=== PATIENT | female | born 1960 | race Caucasian/White ===

== ENCOUNTER 2019-05-28 22:57 | Emergency (ER) | payer BC ==
--- NOTE | 2019-05-28 23:04 | ERPHSYRPT ---
- History of Present Illness Time Seen by Provider: 05/28/19 23:04 Source: patient, EMS Exam Limitations: no limitations Physician History: 58 y/o obese white female presents to ED via ems. pt complains of skin rash. pt under went an open ventral hernia repair with mesh approx 6 days ago. pt has been using utram for pain. pt has been wearing a post op abd binder. there is an itchy rash present on her abd wall. Timing/Duration: today Quality: itchy Severity: mild Location: torso (abd wall) Possible Causes: other (dry skin and abd binder) Associated Symptoms: No change in skin texture, No difficulty breathing, No hives Allergies/Adverse Reactions: codeine Allergy (Verified 03/03/16 22:56) Home Medications: Gabapentin [Neurontin] 300 mg PO TID 10/23/15 [History] Insulin Aspart [NovoLOG Insulin] 0 units SQ ACHS PRN 10/23/15 [History] Hx Tetanus, Diphtheria Vaccination/Date Given: No Hx Influenza Vaccination/Date Given: No Hx Pneumococcal Vaccination/Date Given: No - Review of Systems Constitutional: No Symptoms Eyes: No Symptoms Ears, Nose, & Throat: No Symptoms Respiratory: No Symptoms Cardiac: No Symptoms Abdominal/Gastrointestinal: Abdominal Pain (mild post op) Genitourinary Symptoms: No Symptoms Musculoskeletal: No Symptoms Skin: Rash Neurological: No Symptoms Psychological: No Symptoms Endocrine: No Symptoms Hematologic/Lymphatic: No Symptoms - Past Medical History Pertinent Past Medical History: Yes Neurological History: Stroke Cardiac History: No Pertinent History Respiratory History: No Pertinent History Endocrine Medical History: Diabetes Type II Musculoskeletal History: No Pertinent History GI Medical History: No Pertinent History History: No Pertinent History Psycho-Social History: No Pertinent History Female Reproductive Disorders: No Pertinent History Other Medical History: neruopathy - Past Surgical History Past Surgical History: Yes Neuro Surgical History: No Pertinent History Cardiac: No Pertinent History Respiratory: No Pertinent History Gastrointestinal: Cholecystectomy Genitourinary: No Pertinent History Musculoskeletal: Orthopedic Surgery Female Surgical History: No Pertinent History Other Surgical History: GALLBLADDER REMOVAL,BILATERAL SHOULDER - Social History Smoking Status: Never smoker Exposure to second hand smoke: No Drug Use: none Patient Lives Alone: No Significant Family History: diabetes, DVT/PE - Nursing Vital Signs Nursing Vital Signs: Initial Vital Signs Temperature 98.0 F 05/28/19 22:58 Pulse Rate 66 05/28/19 22:58 Respiratory Rate 20 05/28/19 22:58 Blood Pressure 139/75 05/28/19 22:58 O2 Sat by Pulse Oximetry 95 05/28/19 22:58 Pain Scale Pain Intensity 6 - Physical Exam General Appearance: no apparent distress, alert, anxiety Eye Exam: PERRL/EOMI, eyes nml inspection Ears, Nose, Throat Exam: normal ENT inspection, moist mucous membranes Neck Exam: normal inspection, non-tender, supple, full range of motion Respiratory Exam: normal breath sounds, lungs clear, airway intact, No chest tenderness, No respiratory distress Cardiovascular Exam: regular rate/rhythm, normal heart sounds, normal peripheral pulses Gastrointestinal/Abdomen Exam: soft, normal bowel sounds, tenderness (in distribution of incision site. no evidence of infection. no recurrent hernia. skin dry with rash distribution of abd binder) Pelvic Exam: not done Rectal Exam: not done Back Exam: normal inspection, normal range of motion, No CVA tenderness, No vertebral tenderness Extremity Exam: normal inspection, normal range of motion, pelvis stable Neurologic Exam: alert, oriented x 3, cooperative, last model maker II-XII nml as tested, normal mood/affect, nml cerebellar function, nml station & gait Skin Exam: dry, rash Lymphatic Exam: No adenopathy SpO2 Interpretation: normal O2 Delivery: Room Air - Course Nursing assessment & vital signs reviewed: Yes Ordered Tests: Medication Summary Discontinued Medications Generic Name Dose Route Start Last Admin Trade Name Freq PRN Reason Stop Dose Admin Methylprednisolone Sodium Succinate 125 mg 05/28/19 23:04 Solu-Medrol 125 Mg IV 05/28/19 23:05 STAT ONE - Progress Progress: improved Counseled pt/family regarding: diagnosis, need for follow-up - Departure Departure Disposition: Home Clinical Impression: Post-operative pain, Dermatitis Condition: Stable Critical Care Time: No Referrals: FATUMA GOMES [Primary Care Provider] - Additional Instructions: continue benadryl 25mg orally 3 times daily for 4 days. apply skin moisturizing lotion 2 times daily to abdominal wall rash. discontinue abdominal binder. do not scratch. follow up with your surgeon tomorrow for further management. stop tramadol. use tylenol for pain. Prescriptions: Prednisone 10 mg [Deltasone 10 mg] 10 mg PO BID #6 tablet
[2019-05-28] MEDS ORDERED: solu-MEDROL 125 MG ONE (23:52)
[2019-05-28] MEDS: solu-MEDROL 125 MG IV ONE (23:55)
[2019-05-29 00:37] VITALS: BP 135/60; PULSE 64; O2SAT 94
== END 2019-05-29 00:38 | disposition home or self-care (01) ==
LOC: ED 22:57
DX: G89.18 Other acute postprocedural pain (principal); L30.9 Dermatitis, unspecified
CPT/HCPCS: 96374; 99284; J2930

== ENCOUNTER 2019-07-16 11:07 | Emergency (ER) | payer BC, MEDICARE ==
[2019-07-16] MEDS ORDERED: Sodium Chloride 0.9% 1000 ML 1,000 ML IV SCH (11:45)
[2019-07-16] MEDS ORDERED: Zofran 4 MG/2 ML VIAL IV ONE (11:45)
--- NOTE | 2019-07-16 11:45 | ERPHSYRPT ---
- History of Present Illness Time Seen by Provider: 07/16/19 11:10 Historian: patient, EMS Exam Limitations: clinical condition Patient Subjective Stated Complaint: STATES HAS HAD NAUSEA AND VOMITING SINCE LAST MONDAY. ALSO HAVING EPIGASTRIC PAIN AND NO APPETITE. DENIES DIARRHEA. Triage Nursing Assessment: TO ROOM PER EMS COT. SKIN PALE, W/D. PATIENT HOLDING LEFT UPPER ABD. TENDER TO TOUCH. VOMITING SMALL AMTS GREEN LIQUID. NORMAL BOWEL SOUNDS Physician History: 58 y/o obese white female with renal failure who has not been dialyzed for a week seconary to her attendance at 3 funerals. she presents via ems for 3 day ho n/v and left lower quad abd pain. pt has been taken off all her meds except metoprolol 25mg BID. she did not complain of cp to ems. however, she states she is having localized nonradiating central substernal cp on arrival. Timing/Duration: day(s) (3) Activities at Onset: none Quality: sharpness, stabbing Abdominal Pain Onset Location: LLQ Pain Radiation: no radiation Severity of Pain-Max: moderate Severity of Pain-Current: moderate Modifying Factors: Improves With: vomiting Associated Symptoms: chest pain, nausea, vomiting Allergies/Adverse Reactions: codeine Allergy (Verified 03/03/16 22:56) Home Medications: Metoprolol Tartrate 25 mg PO BID 07/16/19 [History] Hx Tetanus, Diphtheria Vaccination/Date Given: No Hx Influenza Vaccination/Date Given: No Hx Pneumococcal Vaccination/Date Given: No - Review of Systems Constitutional: No Symptoms Eyes: No Symptoms Ears, Nose, & Throat: No Symptoms Respiratory: No Symptoms Cardiac: No Symptoms Abdominal/Gastrointestinal: Abdominal Pain (llq), Nausea, Vomiting Genitourinary Symptoms: No Symptoms Musculoskeletal: No Symptoms Skin: No Symptoms Neurological: No Symptoms Psychological: No Symptoms Endocrine: No Symptoms Hematologic/Lymphatic: No Symptoms Immunological/Allergic: No Symptoms All Other Systems: Reviewed and Negative - Past Medical History Pertinent Past Medical History: Yes Neurological History: Stroke ENT History: No Pertinent History Cardiac History: No Pertinent History Respiratory History: No Pertinent History Endocrine Medical History: Diabetes Type II Musculoskeletal History: No Pertinent History GI Medical History: No Pertinent History History: Renal Disease Psycho-Social History: No Pertinent History Female Reproductive Disorders: No Pertinent History Other Medical History: neruopathy - Past Surgical History Past Surgical History: Yes Neuro Surgical History: No Pertinent History Cardiac: No Pertinent History Respiratory: No Pertinent History Gastrointestinal: Cholecystectomy Genitourinary: No Pertinent History Musculoskeletal: Orthopedic Surgery Female Surgical History: No Pertinent History Other Surgical History: GALLBLADDER REMOVAL,BILATERAL SHOULDER - Social History Smoking Status: Never smoker Exposure to second hand smoke: No Drug Use: none Patient Lives Alone: No Significant Family History: diabetes, DVT/PE - Female History Hx Now: No - Nursing Vital Signs Nursing Vital Signs: Initial Vital Signs Temperature 98 F 07/16/19 11:08 Pulse Rate 79 07/16/19 11:08 Respiratory Rate 16 07/16/19 11:08 Blood Pressure 230/96 07/16/19 11:08 O2 Sat by Pulse Oximetry 95 07/16/19 11:08 Pain Scale Pain Intensity 0 - Physical Exam General Appearance: mild distress, alert, anxiety, obese Eye Exam: PERRL/EOMI, eyes nml inspection Ears, Nose, Throat Exam: normal ENT inspection, moist mucous membranes Neck Exam: normal inspection, non-tender, supple, full range of motion Respiratory Exam: normal breath sounds, lungs clear, airway intact, No chest tenderness, No respiratory distress Cardiovascular Exam: regular rate/rhythm, normal heart sounds, normal peripheral pulses Gastrointestinal/Abdomen Exam: soft, normal bowel sounds, tenderness, guarding, rebound Pelvic Exam: not done Rectal Exam: not done Back Exam: normal inspection, normal range of motion, No CVA tenderness, No vertebral tenderness Extremity Exam: normal inspection, normal range of motion, pelvis stable Neurologic Exam: alert, oriented x 3, cooperative, facilities project manager II-XII nml as tested Skin Exam: normal color, warm, dry Lymphatic Exam: adenopathy SpO2 Interpretation: normal SpO2: 95 O2 Delivery: Room Air - Course Nursing assessment & vital signs reviewed: Yes EKG Interpreted by Me: RATE (80), Sinus Rhythm, NORMAL AXIS, NORMAL INTERVALS, NORMAL QRS, Other (no acute findings. no change from comparison ekg dated ) Ordered Tests: Active Orders 24 hr Category Date Time Status EKG-ER Only STAT Care 07/16/19 11:45 Active IV Insertion STAT Care 07/16/19 11:45 Active ABDOMEN AND PELVIS W/0 CONTRAS [CT] Stat Exams 07/16/19 12:28 Completed CHEST 1 VIEW (PORTABLE) Stat Exams 07/16/19 11:48 Completed AMYLASE Stat Lab 07/16/19 11:40 Completed BLOOD CULTURE Stat Lab 07/16/19 12:21 Received CBC W DIFF Stat Lab 07/16/19 11:40 Completed CMP Stat Lab 07/16/19 11:40 Completed CULTURE,URINE Stat Lab 07/16/19 12:34 Received LIPASE Stat Lab 07/16/19 11:40 Completed Lactic Acid Stat Lab 07/16/19 11:45 Completed TROPONIN Q3H Lab 07/16/19 11:40 Completed TROPONIN Q3H Lab 07/16/19 15:00 Ordered TROPONIN Q3H Lab 07/16/19 18:00 Ordered TROPONIN Q3H Lab 07/16/19 21:00 Ordered TROPONIN Q3H Lab 07/17/19 00:00 Ordered UA W/RFX UR CULTURE Stat Lab 07/16/19 12:34 Completed Medication Summary Generic Name Dose Route Start Last Admin Trade Name Freq PRN Reason Stop Dose Admin Sodium Chloride 1,000 mls @ 100 mls/hr 07/16/19 11:45 07/16/19 12:02 Sodium Chloride 0.9% 1000 Ml IV 08/15/19 11:44 100 mls/hr .Q10H ZHEN Administration Labetalol HCl 40 mg 07/16/19 14:38 Trandate 100mg/20 Ml Mdv IV 07/16/19 14:39 STAT ONE Discontinued Medications Generic Name Dose Route Start Last Admin Trade Name Freq PRN Reason Stop Dose Admin Hydromorphone HCl 0.5 mg 07/16/19 12:18 07/16/19 13:05 Hydromorphone 1 Mg/Ml Ampule IV 07/16/19 12:19 0.5 mg STAT ONE Administration Hydromorphone HCl Confirm 07/16/19 12:48 Hydromorphone 1 Mg/Ml Ampule Administered 07/16/19 12:49 Dose 1 mg .ROUTE .STK-MED ONE Piperacillin Sod/Tazobactam Sod 3.375 gm in 100 mls @ 200 mls/hr 07/16/19 14: 01 Zosyn 3.375gm/100 Ml D5w IV 07/16/19 14:30 STAT STA Piperacillin Sod/Tazobactam Sod Confirm 07/16/19 14:34 Zosyn 3.375gm/100 Ml D5w Administered 07/16/19 14:35 Dose 3.375 gm in 100 mls @ ud IV .STK-MED ONE Labetalol HCl 20 mg 07/16/19 14:07 Trandate 20 Mg/5 Ml Syringe IV 07/16/19 14:08 STAT ONE Metoprolol Tartrate 5 mg 07/16/19 12:16 07/16/19 12:20 Lopressor 5 Mg/5 Ml Injection IV 07/16/19 12:17 5 mg STAT ONE Administration Metoprolol Tartrate Confirm 07/16/19 12:18 Lopressor 5 Mg/5 Ml Injection Administered 07/16/19 12:19 Dose 5 mg IV .STK-MED ONE Ondansetron HCl 4 mg 07/16/19 11:45 07/16/19 12:03 Zofran 4 Mg/2 Ml Vial IV 07/16/19 11:46 4 mg STAT ONE Administration Ondansetron HCl Confirm 07/16/19 11:57 Zofran 4 Mg/2 Ml Vial Administered 07/16/19 11:58 Dose 4 mg .ROUTE .STK-MED ONE Lab/Rad Data: Laboratory Result Diagrams 07/16/19 11:40 07/16/19 11:40 Laboratory Results 07/16/19 07/16/19 07/16/19 Range/Units 12:34 11:45 11:40 WBC (4.0-10.5) K/mm3 RBC (4.1-5.4) M/mm3 Hgb (12.0-16.0) gm/dl Hct (35-47) % MCV (78-100) fl MCH (26-32) pg MCHC (32-36) g/dl RDW (11.5-14.0) % Plt Count (150-450) K/mm3 MPV (6-9.5) fl Gran % (36.0-66.0) % Eos # (Auto) (0-0.5) Absolute Lymphs (auto) (1.0-4.6) Absolute Monos (auto) (0.0-1.3) Lymphocytes % (24.0-44.0) % Monocytes % (0.0-12.0) % Eosinophils % (0.00-5.0) % Basophils % (0.0-0.4) % Absolute Granulocytes (1.4-6.9) Basophils # (0-0.4) Sodium (137-145) mmol/L Potassium (3.5-5.1) mmol/L Chloride (98-107) mmol/L Carbon Dioxide (22-30) mmol/L Anion Gap (5-15) MEQ/L BUN (7-17) mg/dL Creatinine (0.52-1.04) mg/dL Estimated GFR ML/MIN Glucose (74-106) mg/dL Lactic Acid 1.1 (0.4-2.0) Calcium (8.4-10.2) mg/dL Total Bilirubin (0.2-1.3) mg/dL AST (14-36) U/L ALT (0-35) U/L Alkaline Phosphatase (38-126) U/L Troponin I 0.035 H (0.000-0.034) ng/mL Serum Total Protein (6.3-8.2) g/dL Albumin (3.5-5.0) g/dL Amylase (30-110) U/L Lipase (23-300) U/L Urine Color YELLOW (YELLOW) Urine Appearance SLIGHTLY CLOUDY (CLEAR) Urine pH 5.0 (5-6) Ur Specific [place] 1.017 (1.005-1.025) Urine Protein >=500 (Negative) Urine Ketones TRACE (NEGATIVE) Urine Blood SMALL (0-5) Joe/ul Urine Nitrite NEGATIVE (NEGATIVE) Urine Bilirubin NEGATIVE (NEGATIVE) Urine Urobilinogen NEGATIVE (0-1) mg/dL Ur Leukocyte Esterase NEGATIVE (NEGATIVE) Urine WBC (Auto) 51-100 (0-5) /HPF Urine RBC (Auto) 6-10 (0-2) /HPF U Hyaline Cast (Auto) 0-2 (0-2) /LPF U Epithel Cells (Auto) NONE (FEW) /HPF Urine Bacteria (Auto) MODERATE (NEGATIVE) /HPF Urine Mucus (Auto) SLIGHT (NEGATIVE) /HPF Urine Culture Reflexed YES (NO) Urine Glucose 150 (NEGATIVE) mg/dL 07/16/19 07/16/19 Range/Units 11:40 11:40 WBC 8.9 (4.0-10.5) K/mm3 RBC 3.13 L (4.1-5.4) M/mm3 Hgb 9.0 L (12.0-16.0) gm/dl Hct 27.7 L (35-47) % MCV 88.5 (78-100) fl MCH 28.7 (26-32) pg MCHC 32.5 (32-36) g/dl RDW 15.2 H (11.5-14.0) % Plt Count 129 L (150-450) K/mm3 MPV 11.7 H (6-9.5) fl Gran % 78.2 H (36.0-66.0) % Eos # (Auto) 0.24 (0-0.5) Absolute Lymphs (auto) 1.13 (1.0-4.6) Absolute Monos (auto) 0.50 (0.0-1.3) Lymphocytes % 12.7 L (24.0-44.0) % Monocytes % 5.6 (0.0-12.0) % Eosinophils % 2.7 (0.00-5.0) % Basophils % 0.8 (0.0-0.4) % Absolute Granulocytes 6.98 H (1.4-6.9) Basophils # 0.07 (0-0.4) Sodium 143 (137-145) mmol/L Potassium 4.5 (3.5-5.1) mmol/L Chloride 104 (98-107) mmol/L Carbon Dioxide 19 L (22-30) mmol/L Anion Gap 24.3 H (5-15) MEQ/L BUN 98 H (7-17) mg/dL Creatinine 12.48 H (0.52-1.04) mg/dL Estimated GFR 3.3 ML/MIN Glucose 107 H (74-106) mg/dL Lactic Acid (0.4-2.0) Calcium 9.4 (8.4-10.2) mg/dL Total Bilirubin 0.70 (0.2-1.3) mg/dL AST 17 (14-36) U/L ALT 12 (0-35) U/L Alkaline Phosphatase 70 (38-126) U/L Troponin I (0.000-0.034) ng/mL Serum Total Protein 6.8 (6.3-8.2) g/dL Albumin 3.9 (3.5-5.0) g/dL Amylase 76 (30-110) U/L Lipase 173 (23-300) U/L Urine Color (YELLOW) Urine Appearance (CLEAR) Urine pH (5-6) Ur Specific [place] (1.005-1.025) Urine Protein (Negative) Urine Ketones (NEGATIVE) Urine Blood (0-5) Joe/ul Urine Nitrite (NEGATIVE) Urine Bilirubin (NEGATIVE) Urine Urobilinogen (0-1) mg/dL Ur Leukocyte Esterase (NEGATIVE) Urine WBC (Auto) (0-5) /HPF Urine RBC (Auto) (0-2) /HPF U Hyaline Cast (Auto) (0-2) /LPF U Epithel Cells (Auto) (FEW) /HPF Urine Bacteria (Auto) (NEGATIVE) /HPF Urine Mucus (Auto) (NEGATIVE) /HPF Urine Culture Reflexed (NO) Urine Glucose (NEGATIVE) mg/dL - Progress Progress: improved, pain not gone completely, re-examined Progress Note: 07/16/19 14:42 cxr-right basilar opacity ct abd/pelvis-transverse and desc colitis with possible appendicitis 07/16/19 14:[address] [facility]. i reviewed pt hx, condition, ekg and xray results. he accepts pt in transfer. Counseled pt/family regarding: lab results, diagnosis, rad results - Departure Departure Disposition: Transfer Clinical Impression: Renal failure (ARF), acute on chronic, Colitis, Appendicitis, Hypertensive urgency Condition: Fair Critical Care Time: Yes Critical Care Time(excluding separately billable procedures): Critical 30-74 mins Referrals: DOCTOR,NO FAMILY [Primary Care Provider] -
[2019-07-16] MEDS ORDERED: Sodium Chloride 0.9% 1000 ML 1,000 ML ONE (11:57)
[2019-07-16] MEDS ORDERED: Zofran 4 MG/2 ML VIAL ONE (11:57)
[2019-07-16 11:58] LABS: Absolute Neutrophil Ct (ANC) 6.98 (1.4-6.9); BASOPHIL % 0.8 % (0.0-0.4); Basophil (Absolute #) 0.07 (0-0.4); Eosinophil % 2.7 % (0.00-5.0); Eosinophil (Absolute #) 0.24 (0-0.5); Hematocrit 27.7 % (35-47); Lymphocyte (Absolute #) 1.13 (1.0-4.6); Lymphocytes % 12.7 % (24.0-44.0); Mean Cell Volume 88.5 fl (78-100); Mean Corpuscular Hgb Concent. 32.5 g/dl (32-36); Mean Platelet Volume 11.7 fl (6-9.5); Monocytes % 5.6 % (0.0-12.0); Neutrophil % 78.2 % (36.0-66.0); Platelet Count 129 K/mm3 (150-450); Red Blood Count 3.13 M/mm3 (4.1-5.4); Red Cell Distribution Width 15.2 % (11.5-14.0); White Blood Count 8.9 K/mm3 (4.0-10.5)
[2019-07-16 12:00] LABS: Mean Corpuscular Hemoglobin 28.7 pg (26-32)
[2019-07-16] MEDS ORDERED: LOPRESSOR 5 MG/5 ML INJECTION IV ONE ×2 (12:16→12:18)
[2019-07-16] MEDS ORDERED: Hydromorphone 1 mg/ml Ampule IV ONE (12:18)
--- NOTE | 2019-07-16 12:19 | XRAY ---
Indication: Pain 3 days. Vomiting. Comparison: April 07, 2016. Portable chest now demonstrates subtle right base interstitial alveolar opacity. Remaining heart and lungs unremarkable. New partially visualized left arm vascular stent graft. Bony thorax intact again with osteopenia, degenerative changes, and all bilateral humeral fractures. Impression: New right base interstitial lobular opacity and new left arm vascular stent graft.
[2019-07-16] MEDS ORDERED: Hydromorphone 1 mg/ml Ampule ONE (12:48)
[2019-07-16 13:09] LABS: ALBUMIN 3.9 g/dL (3.5-5.0); ANION GAP 24.3 MEQ/L (5-15); BILIRUBIN,TOTAL 0.7 mg/dL (0.2-1.3); Calcium 9.4 mg/dL (8.4-10.2); Creatinine 1 12.48 mg/dL (0.52-1.04); Potassium 4.5 mmol/L (3.5-5.1); Total Protein 6.8 g/dL (6.3-8.2)
[2019-07-16 13:13] LABS: Appearance SLIGHTLY CLOUDY (CLEAR); Bacteria MODERATE /HPF (NEGATIVE); Bilirubin NEGATIVE (NEGATIVE); Blood SMALL Ery/ul (0-5); Glucose 150 mg/dL (NEGATIVE); Hyaline Casts 0-2 /LPF (0-2); Ketones TRACE (NEGATIVE); Leukocyte Esterase NEGATIVE (NEGATIVE); Mucus SLIGHT /HPF (NEGATIVE); Nitrite NEGATIVE (NEGATIVE); Protein,Urine Dip >=500 (Negative); Specific Gravity 1.017 (1.005-1.025); Urobilinogen NEGATIVE mg/dL (0-1); WBC 51-100 /HPF (0-5)
--- NOTE | 2019-07-16 13:41 | XRAY ---
Indication: Left lower quadrant pain and vomiting. Multiple contiguous axial images obtained through the abdomen and pelvis without contrast as ordered. Comparison: April 28, 2016. Lung bases demonstrates new small effusions, right greater than left presumed obscuring previous right posterior gutter nodule. New 1 cm right posterior lateral gutter nodule. Heart is not enlarged. Noncontrasted stomach and small bowel loops appear nonobstructed. Appendix measures 7 mm in diameter with new periappendiceal stranding favoring appendicitis. Colon demonstrates intraluminal radiopacities throughout presumed ingested medication/bismuth. New mild transverse colon and lesser degree descending colon circumferential wall thickening with minimal stranding favoring colitis. No free fluid/air. Previous left adnexal mass has been surgically excised. Uterus demonstrates diffuse serpiginous calcifications. Kidneys demonstrates new nonobstructing bilateral micro-calculi, largest on the left measuring 2 mm. New slightly dense 8 mm round right mid renal cortical lesion, possible viscous/complex cyst. Again previous cholecystectomy. Remaining liver, pancreas, spleen, adrenal glands, kidneys, ureters, and bladder appear unremarkable for noncontrast exam. Stable diffuse scattered vascular calcifications without AAA. Osseous structures intact again with mild degenerative changes throughout the thoracolumbar spine. Midline ventral soft tissue changes presumed postsurgical with small supraumbilical incisional fluid collection measuring 3.3 x 2.5 x 4.5 cm. Impression: 1. New prominent appendix with periappendiceal stranding favoring appendicitis. No complications. 2. New transverse and lesser degree descending colon bowel wall thickening with minimal stranding favoring colitis. 3. New nonobstructing bilateral renal micro-calculi. Also new subcentimeter round right renal cortical lesion, possible viscous/complex cyst. 4. New midline abdominal wall postsurgical changes with supraumbilical incisional fluid collection. Rule out seroma versus hematoma versus abscess. 5. New small bibasilar effusions obscuring previous right posterior lung nodule. Also new 1 cm indeterminate right posterior gutter noncalcified nodule. CT DI 23.47
[2019-07-16] MEDS ORDERED: Zosyn 3.375GM/100 Ml D5W 3.375 GM/100 ML IVPB IV STA (14:01)
[2019-07-16] MEDS ORDERED: TRANDATE 20 MG/5 ML SYRINGE IV ONE (14:07)
[2019-07-16] MEDS ORDERED: Zosyn 3.375GM/100 Ml D5W 3.375 GM/100 ML IVPB IV ONE (14:34)
[2019-07-16] MEDS ORDERED: TRANDATE 100MG/20 ML MDV IV ONE ×2 (14:38→14:39)
[2019-07-16] MEDS ORDERED: TRANDATE 100 MG/20 ML MDV FOR DRIP IV ONE (14:42)
[2019-07-16 15:32] VITALS: BP 219/90; PULSE 82; O2SAT 94
== END 2019-07-16 15:45 | disposition short-term general hospital (02) ==
LOC: ED 11:07
DX: N17.9 Acute kidney failure, unspecified (principal); N18.9 Chronic kidney disease, unspecified; K52.9 Noninfective gastroenteritis and colitis, unspecified; K37 Unspecified appendicitis; I16.0 Hypertensive urgency; R11.2 Nausea with vomiting, unspecified; E11.9 Type 2 diabetes mellitus without complications; Z99.2 Dependence on renal dialysis
CPT/HCPCS: 36000; 36415; 71045; 74176; 80053; 81001; 82150; 83605; 83690; 84484; 85025; 87040; 87077; 87086; 87186; 93005; 93041; 96360; 96361; 96365; 96374; 96375; 99285; 99291; P9612; J1170; J2405; J2543

== ENCOUNTER 2019-08-23 02:26 | Emergency (ER) | payer BC, MEDICARE ==
--- NOTE | 2019-08-23 02:48 | ERPHSYRPT ---
- History of Present Illness Time Seen by Provider: 08/23/19 02:47 Source: patient, EMS Exam Limitations: no limitations Patient Subjective Stated Complaint: PT STATES SHE HAS BEEN SICK SINCE MONDAY AFTER DIALYSIS. BLOOD SUGAR WAS [address] EN [address]TE ER Triage Nursing Assessment: PT ALERT AND ORIENTED, PT KEEPS VERBALIZING THAT SHE FEELS SICK. RATES A CHRONIC PAIN IN BACK 3/10. Physician History: Sick for 2 days with N/V and chronic LBP Timing/Duration: day(s) (2) Severity: moderate Associated Symptoms: nausea, vomiting, abdominal pain, loss of appetite, malaise , No shortness of breath, No heartburn, No diaphoresis, No cough, No chills, No chest pain, No fever, No headaches, No syncope, No seizure Allergies/Adverse Reactions: codeine Allergy (Verified 03/03/16 22:56) pineapple Adverse Reaction (Verified 08/23/19 02:41) Home Medications: Amlodipine Besylate 5 mg [Norvasc 5 mg] 2.5 mg PO BID 08/23/19 [History] Aspirin [Aspirin EC] 81 mg PO DAILY 08/23/19 [History] Clonidine HCl 0.2 mg PO TID 08/23/19 [History] Fluoxetine HCl 20 mg [Prozac 20 MG] 20 mg PO DAILY 08/23/19 [History] Hydralazine HCl 100 mg PO TID 08/23/19 [History] Metoclopramide HCl 5 mg PO BID PRN 08/23/19 [History] PANTOPRAZOLE 40 mg Tablet [Protonix 40MG Tablet] 40 mg PO DAILY 08/23/19 [ History] Sucralfate 1 gm PO DAILY 08/23/19 [History] Hx Tetanus, Diphtheria Vaccination/Date Given: No Hx Influenza Vaccination/Date Given: No Hx Pneumococcal Vaccination/Date Given: No - Review of Systems Constitutional: No Fever, No Chills Eyes: No Symptoms Ears, Nose, & Throat: No Symptoms Respiratory: No Cough, No Dyspnea Cardiac: No Chest Pain, No Edema, No Syncope Abdominal/Gastrointestinal: Abdominal Pain, Nausea, Vomiting, No Diarrhea Genitourinary Symptoms: No Dysuria Musculoskeletal: No Back Pain, No Neck Pain Skin: No Rash Neurological: No Dizziness, No Focal Weakness, No Sensory Changes Psychological: No Symptoms Endocrine: No Symptoms All Other Systems: Reviewed and Negative - Past Medical History Pertinent Past Medical History: Yes Neurological History: Stroke ENT History: No Pertinent History Cardiac History: No Pertinent History Respiratory History: No Pertinent History Endocrine Medical History: Diabetes Type II Musculoskeletal History: No Pertinent History GI Medical History: No Pertinent History History: Renal Disease Psycho-Social History: No Pertinent History Female Reproductive Disorders: No Pertinent History Other Medical History: neruopathy - Past Surgical History Past Surgical History: Yes Neuro Surgical History: No Pertinent History Cardiac: No Pertinent History Respiratory: No Pertinent History Gastrointestinal: Cholecystectomy Genitourinary: No Pertinent History Musculoskeletal: Orthopedic Surgery Female Surgical History: No Pertinent History Other Surgical History: GALLBLADDER REMOVAL,BILATERAL SHOULDER - Social History Smoking Status: Never smoker Exposure to second hand smoke: No Drug Use: none Patient Lives Alone: No Significant Family History: diabetes, DVT/PE - Nursing Vital Signs Nursing Vital Signs: Initial Vital Signs Temperature 98.5 F 08/23/19 02:28 Pulse Rate 93 H 08/23/19 02:28 Blood Pressure 190/98 08/23/19 02:28 O2 Sat by Pulse Oximetry 93 L 08/23/19 02:28 Pain Scale Pain Intensity 0 - Physical Exam General Appearance: no apparent distress, alert Eye Exam: PERRL/EOMI, eyes nml inspection Ears, Nose, Throat Exam: normal ENT inspection, TMs normal, pharynx normal, moist mucous membranes Neck Exam: normal inspection, non-tender, supple, full range of motion Respiratory Exam: normal breath sounds, lungs clear, No respiratory distress Cardiovascular Exam: regular rate/rhythm, normal heart sounds, normal peripheral pulses Gastrointestinal/Abdomen Exam: soft, normal bowel sounds, tenderness (mild, diffuse), No mass Back Exam: normal inspection, normal range of motion, No CVA tenderness, No vertebral tenderness Extremity Exam: normal inspection, normal range of motion, pelvis stable Neurologic Exam: alert, oriented x 3, cooperative, normal mood/affect, nml cerebellar function, nml station & gait, sensation nml, No motor deficits Skin Exam: normal color, warm, dry, No rash Lymphatic Exam: No adenopathy SpO2 Interpretation: normal SpO2: 93 O2 Delivery: Room Air - Course Nursing assessment & vital signs reviewed: Yes Ordered Tests: Active Orders 24 hr Category Date Time Status IV Insertion STAT Care 08/23/19 02:50 Active CBC W DIFF Stat Lab 08/23/19 03:30 Completed CMP Stat Lab 08/23/19 03:30 Completed LIPASE Stat Lab 08/23/19 03:30 Completed Medication Summary Generic Name Dose Route Start Last Admin Trade Name Janis PRN Reason Stop Dose Admin Sodium Chloride 1,000 mls @ 100 mls/hr 08/23/19 03:00 08/23/19 03:03 Sodium Chloride 0.9% 1000 Ml IV 09/22/19 02:59 100 mls/hr .Q10H ZHEN Administration Discontinued Medications Generic Name Dose Route Start Last Admin Trade Name Janis PRN Reason Stop Dose Admin Clonidine 0.2 mg 08/23/19 04:16 08/23/19 04:31 Catapres 0.1 Mg PO 08/23/19 04:17 0.2 mg STAT ONE Administration Clonidine Confirm 08/23/19 04:27 Catapres 0.1 Mg Administered 08/23/19 04:28 Dose 0.2 mg .ROUTE .STK-MED ONE Diphenhydramine HCl 12.5 mg 08/23/19 04:17 08/23/19 04:30 Benadryl 50 Mg/Ml IV 08/23/19 04:18 12.5 mg STAT ONE Administration Diphenhydramine HCl Confirm 08/23/19 04:27 Benadryl 50 Mg/Ml Administered 08/23/19 04:28 Dose 50 mg .ROUTE .STK-MED ONE Metoclopramide HCl 10 mg 08/23/19 02:51 08/23/19 03:03 Reglan 10 Mg/2 Ml IV 08/23/19 02:52 10 mg STAT ONE Administration Metoclopramide HCl Confirm 08/23/19 02:56 Reglan 10 Mg/2 Ml Administered 08/23/19 02:57 Dose 10 mg .ROUTE .STK-MED ONE Morphine Sulfate 2 mg 08/23/19 02:50 08/23/19 03:04 Morphine Sulfate 2 Mg Inj IV 08/23/19 02:51 2 mg STAT ONE Administration Morphine Sulfate Confirm 08/23/19 02:56 Morphine Sulfate 2 Mg Inj Administered 08/23/19 02:57 Dose 2 mg .ROUTE .STK-MED ONE Lab/Rad Data: Laboratory Result Diagrams 08/23/19 03:30 08/23/19 03:30 Laboratory Results 08/23/19 08/23/19 Range/Units 03:30 03:30 WBC 4.6 (4.0-10.5) K/mm3 RBC 4.08 L (4.1-5.4) M/mm3 Hgb 11.1 L (12.0-16.0) gm/dl Hct 36.2 (35-47) % MCV 88.7 (78-100) fl MCH 27.2 (26-32) pg MCHC 30.7 L (32-36) g/dl RDW 14.9 H (11.5-14.0) % Plt Count 145 L (150-450) K/mm3 MPV 10.2 H (6-9.5) fl Gran % 79.4 H (36.0-66.0) % Eos # (Auto) 0.01 (0-0.5) Absolute Lymphs (auto) 0.62 L (1.0-4.6) Absolute Monos (auto) 0.29 (0.0-1.3) Lymphocytes % 13.4 L (24.0-44.0) % Monocytes % 6.3 (0.0-12.0) % Eosinophils % 0.2 (0.00-5.0) % Basophils % 0.7 (0.0-0.4) % Absolute Granulocytes 3.66 (1.4-6.9) Basophils # 0.03 (0-0.4) Sodium 142 (137-145) mmol/L Potassium 4.3 (3.5-5.1) mmol/L Chloride 96 L (98-107) mmol/L Carbon Dioxide 34 H (22-30) mmol/L Anion Gap 16.5 H (5-15) MEQ/L BUN 20 H (7-17) mg/dL Creatinine 5.36 H (0.52-1.04) mg/dL Estimated GFR 8.7 ML/MIN Glucose 210 H (74-106) mg/dL Calcium 9.9 (8.4-10.2) mg/dL Total Bilirubin 0.70 (0.2-1.3) mg/dL AST 17 (14-36) U/L ALT 11 (0-35) U/L Alkaline Phosphatase 76 (38-126) U/L Serum Total Protein 6.9 (6.3-8.2) g/dL Albumin 4.2 (3.5-5.0) g/dL Lipase 29 (23-300) U/L - Progress Progress: improved Progress Note: 08/23/19 06:42Pt resting well. BP 155/84. No vomiting Counseled pt/family regarding: lab results, diagnosis, need for follow-up - Departure Departure Disposition: Home, Extended Care Facility Clinical Impression: Essential hypertension Vomiting Qualifiers: Vomiting type: unspecified Vomiting Intractability: non-intractable Nausea presence: with nausea Qualified Code(s): R11.2 - Nausea with vomiting, unspecified Condition: Stable Critical Care Time: No Referrals: DOCTOR,NO FAMILY [Primary Care Provider] - Prescriptions: Ondansetron ODT 4 MG [Zofran Odt 4 mg] 4 mg PO Q6H PRN PRN #10 tab.rapdis PRN Reason: Vomiting
[2019-08-23] MEDS ORDERED: MORPHINE SULFATE 2 MG INJ ONE (02:56)
[2019-08-23] MEDS ORDERED: Reglan 10 MG/2 ML ONE (02:56)
[2019-08-23] MEDS ORDERED: Sodium Chloride 0.9% 1000 ML 1,000 ML ONE (02:56)
[2019-08-23] MEDS: Reglan 10 MG/2 ML IV ONE (03:03)
[2019-08-23] MEDS: Sodium Chloride 0.9% 1000 ML 1,000 ML IV SCH (03:03)
[2019-08-23] MEDS: MORPHINE SULFATE 2 MG INJ IV ONE (03:04)
[2019-08-23 03:45] LABS: Absolute Neutrophil Ct (ANC) 3.66 (1.4-6.9); BASOPHIL % 0.7 % (0.0-0.4); Basophil (Absolute #) 0.03 (0-0.4); Eosinophil % 0.2 % (0.00-5.0); Eosinophil (Absolute #) 0.01 (0-0.5); Hematocrit 36.2 % (35-47); Hemoglobin 11.1 gm/dl (12.0-16.0); Lymphocyte (Absolute #) 0.62 (1.0-4.6); Lymphocytes % 13.4 % (24.0-44.0); Mean Cell Volume 88.7 fl (78-100); Mean Corpuscular Hemoglobin 27.2 pg (26-32); Mean Corpuscular Hgb Concent. 30.7 g/dl (32-36); Mean Platelet Volume 10.2 fl (6-9.5); Monocyte (Absolute #) 0.29 (0.0-1.3); Monocytes % 6.3 % (0.0-12.0); Neutrophil % 79.4 % (36.0-66.0); Platelet Count 145 K/mm3 (150-450); Red Blood Count 4.08 M/mm3 (4.1-5.4); Red Cell Distribution Width 14.9 % (11.5-14.0); White Blood Count 4.6 K/mm3 (4.0-10.5)
[2019-08-23 04:02] LABS: ALBUMIN 4.2 g/dL (3.5-5.0); ANION GAP 16.5 MEQ/L (5-15); BILIRUBIN,TOTAL 0.7 mg/dL (0.2-1.3); Calcium 9.9 mg/dL (8.4-10.2); Creatinine 1 5.36 mg/dL (0.52-1.04); Potassium 4.3 mmol/L (3.5-5.1); Total Protein 6.9 g/dL (6.3-8.2)
[2019-08-23] MEDS ORDERED: Catapres 0.1 MG ONE (04:27)
[2019-08-23] MEDS ORDERED: BENADRYL 50 MG/ML ONE (04:27)
[2019-08-23] MEDS: BENADRYL 50 MG/ML IV ONE (04:30)
[2019-08-23] MEDS: Catapres 0.1 MG PO ONE (04:31)
[2019-08-23 06:31] VITALS: BP 155/77; PULSE 91; O2SAT 93
== END 2019-08-23 06:58 | disposition home or self-care (01) ==
LOC: ED 02:26
DX: I12.0 Hypertensive chronic kidney disease with stage 5 chronic kidney disease or end stage renal disease (principal); I10 Essential (primary) hypertension
CPT/HCPCS: 36415; 80053; 83690; 85025; 96374; 96375; 99284; J1200; J2270; A9270-GY

== ENCOUNTER 2019-11-02 16:29 | Emergency (ER) | payer MEDICARE, BC ==
[2019-11-02] MEDS ORDERED: DUONEB 0.5-3 MG/3 ml Neb IH ONE ×2 (16:34→16:57)
[2019-11-02] MEDS ORDERED: Sodium Chloride 0.9% 1000 ML 1,000 ML IV SCH (16:45)
[2019-11-02] MEDS ORDERED: BENADRYL 50 MG/ML IV ONE (17:00)
--- NOTE | 2019-11-02 17:00 | ERPHSYRPT ---
- History of Present Illness Time Seen by Provider: 11/02/19 16:57 Source: patient Exam Limitations: no limitations Patient Subjective Stated Complaint: Pt states "I was at a basketball game and I started to have chest pain and shortness of breath. I am on dialysis and I have missed 6 sessions, I also have these spots on my back that really really hurt." Triage Nursing Assessment: Pt presented alert and orietned X 3, skin wpd Pt holding chest, abulate with an upright steady gait, able to speak in clear full sentences pt short of breath, rhales noted bilat lower lobes. Physician History: Patient is 59 years old female with PMHx of diabetes, chronic kidney disease(on dialysis) states "I was at a basketball game and I started to have chest pain and shortness of breath. I am on dialysis and I have missed 6 sessions, I also have these spots on my back that really really hurt." Timing/Duration: today Activities at Onset: rest Severity of Dyspnea-Max: moderate Severity of Dyspnea-Current: moderate Possible Cause: frequent episodes Associated Symptoms: ankle swelling, leg swelling, muscle spasms feet International travel in last 2 weeks: No Allergies/Adverse Reactions: codeine Allergy (Verified 03/03/16 22:56) pineapple Adverse Reaction (Verified 08/23/19 02:41) Home Medications: Amlodipine Besylate 5 mg [Norvasc 5 mg] 2.5 mg PO BID 08/23/19 [History] Aspirin [Aspirin EC] 81 mg PO DAILY 08/23/19 [History] Clonidine HCl 0.2 mg PO TID 08/23/19 [History] Fluoxetine HCl 20 mg [Prozac 20 MG] 20 mg PO DAILY 08/23/19 [History] Hydralazine HCl 100 mg PO TID 08/23/19 [History] Metoclopramide HCl 5 mg PO BID PRN 08/23/19 [History] PANTOPRAZOLE 40 mg Tablet [Protonix 40MG Tablet] 40 mg PO DAILY 08/23/19 [ History] Sucralfate 1 gm PO DAILY 08/23/19 [History] Hx Tetanus, Diphtheria Vaccination/Date Given: No Hx Influenza Vaccination/Date Given: No Hx Pneumococcal Vaccination/Date Given: No Immunizations Up to Date: Yes - Review of Systems Constitutional: Fatigue, Lethargy, No Fever, No Chills Eyes: No Symptoms Ears, Nose, & Throat: No Symptoms Respiratory: Dyspnea, Dyspnea on Exertion (BAGLEY), No Cough Cardiac: Edema, Orthopnea, No Chest Pain, No Syncope Abdominal/Gastrointestinal: No Abdominal Pain, No Nausea, No Vomiting, No Diarrhea Genitourinary Symptoms: No Dysuria Musculoskeletal: Back Pain, Neck Pain Skin: Rash Neurological: No Dizziness, No Focal Weakness, No Sensory Changes Psychological: No Symptoms Endocrine: No Symptoms All Other Systems: Reviewed and Negative - Past Medical History Pertinent Past Medical History: Yes Neurological History: Stroke ENT History: No Pertinent History Cardiac History: No Pertinent History Respiratory History: No Pertinent History Endocrine Medical History: Diabetes Type II Musculoskeletal History: No Pertinent History GI Medical History: No Pertinent History History: Renal Disease Psycho-Social History: No Pertinent History Female Reproductive Disorders: No Pertinent History Other Medical History: neruopathy - Past Surgical History Past Surgical History: Yes Neuro Surgical History: No Pertinent History Cardiac: No Pertinent History Respiratory: No Pertinent History Gastrointestinal: Cholecystectomy Genitourinary: No Pertinent History Musculoskeletal: Orthopedic Surgery Female Surgical History: No Pertinent History Other Surgical History: GALLBLADDER REMOVAL,BILATERAL SHOULDER - Social History Smoking Status: Never smoker Exposure to second hand smoke: Yes Drug Use: none Patient Lives Alone: No Significant Family History: diabetes, DVT/PE - Nursing Vital Signs Nursing Vital Signs: Initial Vital Signs Temperature 97.8 F 11/02/19 16:33 Pulse Rate 84 11/02/19 16:33 Respiratory Rate 24 11/02/19 16:33 Blood Pressure 173/109 11/02/19 16:33 O2 Sat by Pulse Oximetry 90 L 11/02/19 16:33 Pain Scale Pain Intensity 4 - Physical Exam General Appearance: mild distress, alert Eye Exam: PERRL/EOMI Neck Exam: normal inspection, supple Respiratory Exam: diminished breath sounds, crackles/rales, rhonchi Cardiovascular/Chest Exam: normal heart sounds, regular rate/rhythm, edema, JVD Abdominal/Gastrointestinal Exam: soft, No tenderness, No distention, No mass Extremity Exam: non-tender, normal range of motion, normal inspection, no calf tenderness, no pedal edema Neurologic Exam: alert, oriented x 3, cooperative, business center representative II-XII nml as tested, sensation nml, No motor deficits Skin Exam: normal color, warm, No dry SpO2 Interpretation: borderline oxygenation SpO2: 90 O2 Delivery: Room Air - Course Nursing assessment & vital signs reviewed: Yes EKG Interpreted by Me: Non-specific ST Changes - Radiology Exams Chest X-ray Interpretation: Reviewed by me (CHF changes) Ordered Tests: Active Orders 24 hr Category Date Time Status EKG-ER Only STAT Care 11/02/19 16:34 Active CHEST 1 VIEW (PORTABLE) Stat Exams 11/02/19 16:49 Taken CMP Stat Lab 11/02/19 17:08 Completed D-DIMER QUANTITATIVE Stat Lab 11/02/19 17:08 Completed Lactic Acid Stat Lab 11/02/19 16:34 Completed NT PRO BNP Stat Lab 11/02/19 17:08 Completed TROPONIN Q3H Lab 11/02/19 17:08 Completed TROPONIN Q3H Lab 11/02/19 19:45 Ordered TROPONIN Q3H Lab 11/02/19 22:45 Ordered TROPONIN Q3H Lab 11/03/19 01:45 Ordered TROPONIN Q3H Lab 11/03/19 04:45 Ordered UA W/RFX UR CULTURE Stat Lab 11/02/19 16:34 Uncollected Peak Expiratory Flow Rate ONCE RT 11/02/19 17:01 Completed Respiratory Therapy Assessment DAILY RT 11/02/19 17:00 Completed Medication Summary Generic Name Dose Route Start Last Admin Trade Name Freq PRN Reason Stop Dose Admin Sodium Chloride 1,000 mls @ 50 mls/hr 11/02/19 16:45 11/02/19 18:32 Sodium Chloride 0.9% 1000 Ml IV 12/02/19 16:44 50 mls/hr .Q20H ZHEN Administration Discontinued Medications Generic Name Dose Route Start Last Admin Trade Name Freq PRN Reason Stop Dose Admin Albuterol/Ipratropium 3 ml 11/02/19 16:34 11/02/19 16:59 Duoneb 0.5-3 Mg/3 Ml Neb IH 11/02/19 16:35 3 ml STAT ONE Administration Albuterol/Ipratropium Confirm 11/02/19 16:57 Duoneb 0.5-3 Mg/3 Ml Neb Administered 11/02/19 16:58 Dose 3 ml IH .STK-MED ONE Diphenhydramine HCl 25 mg 11/02/19 17:00 01/18/20 18:05 Benadryl 50 Mg/Ml IV 11/02/19 17:01 25 mg STAT ONE Administration Diphenhydramine HCl Confirm 11/02/19 18:04 Benadryl 50 Mg/Ml Administered 11/02/19 18:05 Dose 50 mg .ROUTE .STK-MED ONE Furosemide 40 mg 11/02/19 18:16 11/02/19 18:32 Lasix 40 Mg/4 Ml IV 11/02/19 18:17 40 mg STAT ONE Administration Furosemide Confirm 11/02/19 18:26 Lasix 40 Mg/4 Ml Administered 11/02/19 18:27 Dose 40 mg .ROUTE .STK-MED ONE Hydralazine HCl 20 mg 11/02/19 18:13 11/02/19 18:31 Apresoline 20 Mg/Ml Inj IV 11/02/19 18:14 20 mg STAT ONE Administration Hydralazine HCl Confirm 11/02/19 18:26 Apresoline 20 Mg/Ml Inj Administered 11/02/19 18:27 Dose 20 mg .ROUTE .STK-MED ONE Labetalol HCl 10 mg 11/02/19 18:15 11/02/19 18:28 Trandate 100mg/20 Ml Mdv IV 11/02/19 18:16 10 mg 1XONLY ONE Administration Labetalol HCl Confirm 11/02/19 18:25 Trandate 100 Mg/20 Ml Mdv For Drip Administered 11/02/19 18:26 Dose 100 mg IV .[facility] ONE Lab/Rad Data: Laboratory Result Diagrams 11/02/19 17:08 Laboratory Results 11/02/19 11/02/19 11/02/19 Range/Units 17:45 17:08 17:08 D-Dimer 2285 H* (215-500) ng/mL Sodium (137-145) mmol/L Potassium (3.5-5.1) mmol/L Chloride (98-107) mmol/L Carbon Dioxide (22-30) mmol/L Anion Gap (5-15) MEQ/L BUN (7-17) mg/dL Creatinine (0.52-1.04) mg/dL Estimated GFR ML/MIN Glucose (74-106) mg/dL Lactic Acid (0.4-2.0) Calcium (8.4-10.2) mg/dL Total Bilirubin (0.2-1.3) mg/dL AST (14-36) U/L ALT (0-35) U/L Alkaline Phosphatase (38-126) U/L Troponin I 0.038 H* (0.000-0.034) ng/mL NT-Pro-B Natriuret Pep (0-900) pg/mL Serum Total Protein (6.3-8.2) g/dL Albumin (3.5-5.0) g/dL Influenza Type A Ag NEGATIVE (NEGATIVE) Influenza Type B Ag NEGATIVE (NEGATIVE) RSV (PCR) NEGATIVE (Negative) 11/02/19 11/02/19 Range/Units 17:08 16:34 D-Dimer (215-500) ng/mL Sodium 139 (137-145) mmol/L Potassium 4.5 (3.5-5.1) mmol/L Chloride 98 (98-107) mmol/L Carbon Dioxide 24 (22-30) mmol/L Anion Gap 21.7 H (5-15) MEQ/L BUN 77 H (7-17) mg/dL Creatinine 12.87 H (0.52-1.04) mg/dL Estimated GFR 3.1 ML/MIN Glucose 158 H (74-106) mg/dL Lactic Acid 1.4 (0.4-2.0) Calcium 8.4 (8.4-10.2) mg/dL Total Bilirubin 0.50 (0.2-1.3) mg/dL AST 14 (14-36) U/L ALT 9 (0-35) U/L Alkaline Phosphatase 55 (38-126) U/L Troponin I (0.000-0.034) ng/mL NT-Pro-B Natriuret Pep [id number] H (0-900) pg/mL Serum Total Protein 6.5 (6.3-8.2) g/dL Albumin 3.9 (3.5-5.0) g/dL Influenza Type A Ag (NEGATIVE) Influenza Type B Ag (NEGATIVE) RSV (PCR) (Negative) - Progress Progress: unchanged Air Movement: fair Progress Note: 11/02/19 18:49 Patient is informed about all her laboratory data including BUNs 77 and creatinine 12.87 which make her require emergency dialysis, which we cannot offer it. He patient is refusing to go anywhere else, but at this point of time , it is highly recommended that patient should be transferred to [facility] for further dialysis. I talked to patient's daughter. She is on her way to the emergency room. Meanwhile transfer arrangement has been made and we will transfer patient to [facility] for further dialysis. Blood Culture(s) Obtained: No Antibiotics given: No Counseled pt/family regarding: lab results, diagnosis, need for follow-up, rad results - Departure Departure Disposition: Transfer ([facility]) Clinical Impression: Elevated troponin I level, Hypertensive urgency Acute on chronic renal failure Qualifiers: Acute renal failure type: unspecified Chronic kidney disease stage: on chronic dialysis Qualified Code(s): N17.9 - Acute kidney failure, unspecified; N18.9 - Chronic kidney disease, unspecified; Z99.2 - Dependence on renal dialysis Condition: Fair Critical Care Time: Yes Critical Care Time(excluding separately billable procedures): Critical 30-74 mins Referrals: DOCTOR,NO FAMILY [Primary Care Provider] -
[2019-11-02 17:38] LABS: ALBUMIN 3.9 g/dL (3.5-5.0); ANION GAP 21.7 MEQ/L (5-15); BILIRUBIN,TOTAL 0.5 mg/dL (0.2-1.3); Calcium 8.4 mg/dL (8.4-10.2); Creatinine 1 12.87 mg/dL (0.52-1.04); Potassium 4.5 mmol/L (3.5-5.1); Total Protein 6.5 g/dL (6.3-8.2)
[2019-11-02] MEDS ORDERED: BENADRYL 50 MG/ML ONE (18:04)
[2019-11-02 18:11] LABS: INFLUENZA A NEGATIVE (NEGATIVE); INFLUENZA B NEGATIVE (NEGATIVE); RESPIRATORY SYNCTIAL VIRUS NEGATIVE (Negative)
[2019-11-02] MEDS ORDERED: APRESOLINE 20 MG/ML INJ IV ONE (18:13)
[2019-11-02] MEDS ORDERED: TRANDATE 100MG/20 ML MDV IV ONE (18:15)
[2019-11-02] MEDS ORDERED: Lasix 40 MG/4 ML IV ONE (18:16)
[2019-11-02] MEDS ORDERED: TRANDATE 100 MG/20 ML MDV FOR DRIP IV ONE (18:25)
[2019-11-02] MEDS ORDERED: Sodium Chloride 0.9% 1000 ML 1,000 ML ONE (18:26)
[2019-11-02] MEDS ORDERED: APRESOLINE 20 MG/ML INJ ONE (18:26)
[2019-11-02] MEDS ORDERED: Lasix 40 MG/4 ML ONE (18:26)
--- NOTE | 2019-11-02 19:13 | XRAY ---
Indication: Short of breath and chest pain. Comparison: July 16, 2019. Portable chest demonstrates new cardiomegaly, vascular congestion, pulmonary edema, and mild/moderate bibasilar pleural effusions/atelectasis favoring cardiac decompensation. Superimposed pneumonia not completely excluded. Stable osteopenia, degenerative changes, bilateral humeral fractures, and left arm vascular stent grafts.
[2019-11-02] MEDS ORDERED: Hydromorphone 1 mg/ml Ampule IV ONE (19:36)
[2019-11-02] MEDS ORDERED: Zofran 4 MG/2 ML VIAL IV ONE (19:38)
[2019-11-02] MEDS ORDERED: Hydromorphone 1 mg/ml Ampule ONE (19:39)
[2019-11-02] MEDS ORDERED: Zofran 4 MG/2 ML VIAL ONE (19:39)
[2019-11-02 20:08] VITALS: BP 146/75; PULSE 76; O2SAT 95
== END 2019-11-02 20:27 | disposition short-term general hospital (02) ==
LOC: ED 16:29
DX: N17.9 Acute kidney failure, unspecified (principal); N18.9 Chronic kidney disease, unspecified; Z99.2 Dependence on renal dialysis; R79.89 Other specified abnormal findings of blood chemistry; I10 Essential (primary) hypertension; R07.9 Chest pain, unspecified; E11.9 Type 2 diabetes mellitus without complications
CPT/HCPCS: 36415; 71045; 80053; 83605; 83880; 84484; 85379; 87631; 93005; 94150; 94640; 96360; 96361; 96374; 96375; 99285; 99291; J0360; J1170; J1200; J1940; J2405; A9270-GY

== ENCOUNTER 2019-12-15 23:33 | Emergency (ER) | payer BC, MEDICAID ==
[2019-12-16 01:42] LABS: Absolute Neutrophil Ct (ANC) 2.66 (1.4-6.9); BASOPHIL % 0.6 % (0.0-0.4); Basophil (Absolute #) 0.03 (0-0.4); Eosinophil % 4.1 % (0.00-5.0); Eosinophil (Absolute #) 0.19 (0-0.5); Hematocrit 27.1 % (35-47); Hemoglobin 8.5 gm/dl (12.0-16.0); Lymphocyte (Absolute #) 1.27 (1.0-4.6); Lymphocytes % 27.3 % (24.0-44.0); Mean Cell Volume 89.4 fl (78-100); Mean Corpuscular Hemoglobin 28.1 pg (26-32); Mean Corpuscular Hgb Concent. 31.4 g/dl (32-36); Mean Platelet Volume 13.1 fl (7.5-11.0); Monocytes % 10.8 % (0.0-12.0); Neutrophil % 57.2 % (36.0-66.0); Platelet Count 132 K/mm3 (150-450); Red Blood Count 3.03 M/mm3 (4.1-5.4); Red Cell Distribution Width 15.1 % (11.5-14.0); White Blood Count 4.7 K/mm3 (4.0-10.5)
[2019-12-16 02:12] LABS: ALBUMIN 3.8 g/dL (3.5-5.0); ANION GAP 13.9 MEQ/L (5-15); BILIRUBIN,TOTAL 0.5 mg/dL (0.2-1.3); Calcium 9.3 mg/dL (8.4-10.2); Creatinine 1 4.76 mg/dL (0.52-1.04); Potassium 3.9 mmol/L (3.5-5.1); Total Protein 6.5 g/dL (6.3-8.2)
[2019-12-16 03:20] VITALS: BP 131/55; PULSE 88; O2SAT 98
--- NOTE | 2019-12-16 03:22 | ERPHSYRPT ---
- History of Present Illness Time Seen by Provider: 12/15/19 23:55 Source: patient Exam Limitations: no limitations Patient Subjective Stated Complaint: Weakness Triage Nursing Assessment: Patient brought into ED via ambulance and transferred to bed with assist of 2. Patient A+O X 3. Patient complains of weakness. Patient complains of constant aching pain 5/10. Patient's lungs clear a/p ignacio. Heart tones audible. No edema noted. Patient takes dialysis and just received it Monday and Monday. Patient states she is currently living without power. Patient states she has no food in her home and hasn't ate in two weeks. Physician History: Patient is a 59-year-old female presents to our ED via ambulance for evaluation. Patient complains of weakness. Patient states she has purchased her home medications. Patient states her lost his job and they cannot afford the medications. She does have the prescriptions however. Patient is also on dialysis. She has not missed any dialysis sessions however. Patient states she is currently living without power. She has no food and is hungry. Patient states that she has been without power for approximately 2 weeks. Timing/Duration: week(s) Severity: moderate Modifying Factors: Improves With: cold therapy Associated Symptoms: other, No denies symptoms, No nausea, No vomiting, No abdominal pain, No heartburn, No fever, No headaches Allergies/Adverse Reactions: codeine Allergy (Verified 12/15/19 23:36) pineapple Adverse Reaction (Verified 12/15/19 23:36) Home Medications: Amlodipine Besylate 5 mg [Norvasc 5 mg] 2.5 mg PO BID 08/23/19 [History] Aspirin [Aspirin EC] 81 mg PO DAILY 08/23/19 [History] Clonidine HCl 0.2 mg PO TID 08/23/19 [History] Fluoxetine HCl 20 mg [Prozac 20 MG] 20 mg PO DAILY 08/23/19 [History] Hydralazine HCl 100 mg PO TID 08/23/19 [History] Metoclopramide HCl 5 mg PO BID PRN 08/23/19 [History] PANTOPRAZOLE 40 mg Tablet [Protonix 40MG Tablet] 40 mg PO DAILY 08/23/19 [ History] Sucralfate 1 gm PO DAILY 08/23/19 [History] Hx Tetanus, Diphtheria Vaccination/Date Given: No Hx Influenza Vaccination/Date Given: Yes Hx Pneumococcal Vaccination/Date Given: No Immunizations Up to Date: Yes - Review of Systems Constitutional: No Fever, No Chills Eyes: No Symptoms Ears, Nose, & Throat: No Symptoms Respiratory: No Symptoms, No Cough, No Dyspnea Cardiac: No Symptoms, No Chest Pain, No Edema, No Syncope Abdominal/Gastrointestinal: No Symptoms, No Abdominal Pain, No Nausea, No Vomiting, No Diarrhea Genitourinary Symptoms: No Symptoms, No Dysuria Musculoskeletal: No Symptoms, No Back Pain, No Neck Pain Skin: No Symptoms, No Rash Neurological: No Dizziness, No Focal Weakness, No Sensory Changes Psychological: No Symptoms Endocrine: No Symptoms All Other Systems: Reviewed and Negative - Past Medical History Pertinent Past Medical History: Yes Neurological History: Stroke ENT History: No Pertinent History Cardiac History: No Pertinent History Respiratory History: No Pertinent History Endocrine Medical History: Diabetes Type II Musculoskeletal History: No Pertinent History GI Medical History: No Pertinent History History: Renal Disease Psycho-Social History: No Pertinent History Female Reproductive Disorders: No Pertinent History Other Medical History: neruopathy - Past Surgical History Past Surgical History: Yes Neuro Surgical History: No Pertinent History Cardiac: No Pertinent History Respiratory: No Pertinent History Gastrointestinal: Cholecystectomy Genitourinary: No Pertinent History Musculoskeletal: Orthopedic Surgery Female Surgical History: No Pertinent History Other Surgical History: GALLBLADDER REMOVAL,BILATERAL SHOULDER - Social History Smoking Status: Never smoker Exposure to second hand smoke: Yes Drug Use: none Patient Lives Alone: No Significant Family History: diabetes, DVT/PE - Female History Hx Now: No - Nursing Vital Signs Nursing Vital Signs: Initial Vital Signs Pulse Rate 72 12/15/19 23:49 Respiratory Rate 20 12/15/19 23:49 Blood Pressure 173/84 12/15/19 23:49 O2 Sat by Pulse Oximetry 97 12/15/19 23:49 Pain Scale Pain Intensity 0 - Physical Exam General Appearance: no apparent distress, alert, other (Patient sitting up in bed she is conversant well-appearing no acute distress. Patient is nontoxic. She is well-appearing. Patient denies pain.) Eye Exam: PERRL/EOMI, eyes nml inspection Ears, Nose, Throat Exam: normal ENT inspection, TMs normal, pharynx normal, moist mucous membranes Neck Exam: normal inspection, non-tender, supple, full range of motion Respiratory Exam: normal breath sounds, lungs clear, No respiratory distress Cardiovascular Exam: regular rate/rhythm, normal heart sounds, normal peripheral pulses Gastrointestinal/Abdomen Exam: soft, normal bowel sounds, No tenderness, No mass Back Exam: normal inspection, normal range of motion, No CVA tenderness, No vertebral tenderness Extremity Exam: normal inspection, normal range of motion, pelvis stable Neurologic Exam: alert, oriented x 3, cooperative, normal mood/affect, nml cerebellar function, nml station & gait, sensation nml, No motor deficits Skin Exam: normal color, warm, dry, No rash Lymphatic Exam: No adenopathy SpO2 Interpretation: normal SpO2: 98 O2 Delivery: Room Air - Course EKG Interpreted by Me: RATE, NORMAL AXIS, NORMAL INTERVALS Ordered Tests: Active Orders 24 hr Category Date Time Status Hosiery Knitter STAT Care 12/16/19 00:59 Active EKG-ER Only STAT Care 12/16/19 00:58 Active IV Insertion STAT Care 12/16/19 00:58 Active Pulse Oximetry (ED) STAT Care 12/16/19 00:58 Active CBC W DIFF Stat Lab 12/16/19 00:58 Completed CMP Stat Lab 12/16/19 00:58 Completed UA W/RFX UR CULTURE Stat Lab 12/16/19 00:59 Uncollected Lab/Rad Data: Laboratory Result Diagrams 12/16/19 00:58 12/16/19 00:58 Laboratory Results 12/16/19 12/16/19 Range/Units 00:58 00:58 WBC 4.7 (4.0-10.5) K/mm3 RBC 3.03 L (4.1-5.4) M/mm3 Hgb 8.5 L (12.0-16.0) gm/dl Hct 27.1 L (35-47) % MCV 89.4 (78-100) fl MCH 28.1 (26-32) pg MCHC 31.4 L (32-36) g/dl RDW 15.1 H (11.5-14.0) % Plt Count 132 L (150-450) K/mm3 MPV 13.1 H (7.5-11.0) fl Gran % 57.2 (36.0-66.0) % Eos # (Auto) 0.19 (0-0.5) Absolute Lymphs (auto) 1.27 (1.0-4.6) Absolute Monos (auto) 0.50 (0.0-1.3) Lymphocytes % 27.3 (24.0-44.0) % Monocytes % 10.8 (0.0-12.0) % Eosinophils % 4.1 (0.00-5.0) % Basophils % 0.6 (0.0-0.4) % Absolute Granulocytes 2.66 (1.4-6.9) Basophils # 0.03 (0-0.4) Sodium 135 L (137-145) mmol/L Potassium 3.9 (3.5-5.1) mmol/L Chloride 95 L (98-107) mmol/L Carbon Dioxide 30 (22-30) mmol/L Anion Gap 13.9 (5-15) MEQ/L BUN 27 H (7-17) mg/dL Creatinine 4.76 H (0.52-1.04) mg/dL Estimated GFR 9.9 ML/MIN Glucose 104 (74-106) mg/dL Calcium 9.3 (8.4-10.2) mg/dL Total Bilirubin 0.50 (0.2-1.3) mg/dL AST 15 (14-36) U/L ALT 8 (0-35) U/L Alkaline Phosphatase 70 (38-126) U/L Serum Total Protein 6.5 (6.3-8.2) g/dL Albumin 3.8 (3.5-5.0) g/dL - Progress Progress: improved Progress Note: 12/16/19 03:29 Patient reassessed. She feels well. No numbness tingling or weakness. Laboratory work-up essentially negative. Patient ate a meal in our ED. Patient feels well patient requesting discharge. She voices no other complaints or concerns at this time. Counseled pt/family regarding: lab results, diagnosis, need for follow-up - Departure Departure Disposition: Home Clinical Impression: Social discord, Non compliance w medication regimen Condition: Stable Critical Care Time: No Referrals: DOCTOR,NO FAMILY [Primary Care Provider] - Additional Instructions: Discharge/Care Plan MADELEINEALEX CATHERINE was seen on 12/16/19 in the Emergency Room. The patient was counseled regarding Diagnosis,Lab results, Imaging studies, need for follow up and when to return to the Emergency Room. Prescriptions given: Discharge Note I have spoken with the patient and/or caregivers. I have explained the patient' s condition, diagnosis and treatment plan based on the information available to me at this time. I have answered the patient's and/or caregiver's questions and addressed any concerns. The patient and/or caregivers have as good understanding of the patient's diagnosis, condition and treatment plan as can be expected at this point. The vital signs have been stable. The patient's condition is stable and appropriate for discharge from the emergency department. The patient will pursue further outpatient evaluation with the primary care physician or other designated or consulting physician as outlined in the discharge instructions. The patient and/or caregivers are agreeable to this plan of care and follow-up instructions have been explained in detail. The patient and/or caregivers have received these instruction. The patient/and or caregivers are aware that any significant change in condition or worsening of symptoms should prompt an immediate return to this or the closest emergency department or call 911.
== END 2019-12-16 04:30 | disposition home or self-care (01) ==
LOC: ED 23:33
DX: Z73.5 Social role conflict, not elsewhere classified (principal); Z91.14 Patient's other noncompliance with medication regimen; Z99.2 Dependence on renal dialysis; E11.9 Type 2 diabetes mellitus without complications
CPT/HCPCS: 36000; 36415; 80053; 85025; 93005; 93041; 94760; 99284

== ENCOUNTER 2020-02-25 00:48 | Emergency (ER) | payer MEDICARE ==
[2020-02-25] MEDS ORDERED: BABY ASPIRIN 81 MG CHEW PO ONE (00:57)
--- NOTE | 2020-02-25 00:57 | ERPHSYRPT ---
- History of Present Illness Time Seen by Provider: 02/25/20 00:57 Historian: patient Exam Limitations: no limitations Physician History: Is a 59-year-old noncompliant patient who has a history of chronic renal failure and gets dialyzed Monday. She did not go to dialysis because she had diarrhea. She has not been to dialysis in over a week. Patient also states that she has not taking any of her medications for the last week and a half because she says "I am not rich". Patient presents with nonradiating sharp chest pain in the left chest area. This has been present for 2 weeks patient has a history of chronic the elevated troponins in the past as well as gastritis, chronic epigastric pain, hypertension. Patient is supposed to be on a proton pump inhibitor, clonidine, hydralazine, amlodipine and a baby aspirin daily. The EMS service provided the patient with nitroglycerin and 324 mg of aspirin prior to arrival. She has had a cholecystectomy in the past Timing/Duration: week(s) (2) Quality: sharpness, stabbing Location: other (Left anterior chest) Chest Pain Radiation: no radiation Severity of Pain-Max: mild Severity of Pain-Current: mild Modifying Factors: Improves With: nitroglycerin (Improved), aspirin (Improved) Nitro Today/Relief: 0.4 mg x 1, provided by EMS Aspirin Treatment Today: 81 mg x 4, provided by EMS Allergies/Adverse Reactions: codeine Allergy (Verified 02/25/20 01:07) pineapple Adverse Reaction (Verified 02/25/20 01:07) Home Medications: Amlodipine Besylate 5 mg [Norvasc 5 mg] 2.5 mg PO BID 08/23/19 [History] Aspirin [Aspirin EC] 81 mg PO DAILY 08/23/19 [History] Clonidine HCl 0.2 mg PO TID 08/23/19 [History] Fluoxetine HCl 20 mg [Prozac 20 MG] 20 mg PO DAILY 08/23/19 [History] Hydralazine HCl 100 mg PO TID 08/23/19 [History] Metoclopramide HCl 5 mg PO BID PRN 08/23/19 [History] PANTOPRAZOLE 40 mg Tablet [Protonix 40MG Tablet] 40 mg PO DAILY 08/23/19 [ History] Sucralfate 1 gm PO DAILY 08/23/19 [History] Hx Tetanus, Diphtheria Vaccination/Date Given: No Hx Influenza Vaccination/Date Given: Yes Hx Pneumococcal Vaccination/Date Given: No Travel Risk - International Travel Have you traveled outside of the country in past 3 weeks: No Have you or anyone close to you been diagnosed with or: No Do your reside in a community with a known COVID-19 case?: Yes If Yes where:: [facility] - Coronavirus Screening Has patient experienced Coronavirus symptoms: No - Review of Systems Constitutional: No Symptoms Eyes: No Symptoms Ears, Nose, & Throat: No Symptoms Respiratory: No Symptoms Cardiac: Chest Pain Abdominal/Gastrointestinal: No Symptoms Genitourinary Symptoms: No Symptoms Musculoskeletal: No Symptoms Skin: No Symptoms Neurological: No Symptoms Psychological: No Symptoms Endocrine: No Symptoms Hematologic/Lymphatic: No Symptoms Immunological/Allergic: No Symptoms All Other Systems: Reviewed and Negative - Past Medical History Pertinent Past Medical History: Yes Neurological History: Stroke ENT History: No Pertinent History Cardiac History: No Pertinent History Respiratory History: No Pertinent History Endocrine Medical History: Diabetes Type II Musculoskeletal History: No Pertinent History GI Medical History: No Pertinent History History: Renal Disease Psycho-Social History: No Pertinent History Female Reproductive Disorders: No Pertinent History Other Medical History: neruopathy - Past Surgical History Past Surgical History: Yes Neuro Surgical History: No Pertinent History Cardiac: No Pertinent History Respiratory: No Pertinent History Gastrointestinal: Cholecystectomy Genitourinary: No Pertinent History Musculoskeletal: Orthopedic Surgery Female Surgical History: No Pertinent History Other Surgical History: GALLBLADDER REMOVAL,BILATERAL SHOULDER - Social History Smoking Status: Never smoker Exposure to second hand smoke: Yes Drug Use: none Patient Lives Alone: No Significant Family History: diabetes, DVT/PE - Nursing Vital Signs Nursing Vital Signs: Initial Vital Signs Temperature 98.2 F 02/25/20 00:51 Pulse Rate 80 02/25/20 00:51 Respiratory Rate 16 02/25/20 00:51 Blood Pressure 164/81 02/25/20 00:51 O2 Sat by Pulse Oximetry 96 02/25/20 00:51 Pain Scale Pain Intensity 4 - Physical Exam General Appearance: mild distress, alert, anxiety Eye Exam: PERRL/EOMI, eyes nml inspection Ears, Nose, Throat Exam: normal ENT inspection, moist mucous membranes Neck Exam: normal inspection, non-tender, supple, full range of motion Respiratory Exam: normal breath sounds, chest tenderness (Left anterior chest), lungs clear, airway intact, No respiratory distress Cardiovascular Exam: regular rate/rhythm, normal heart sounds, normal peripheral pulses Gastrointestinal/Abdomen Exam: soft, normal bowel sounds, No tenderness, No guarding Pelvic Exam: not done Rectal Exam: not done Back Exam: normal inspection, normal range of motion, No CVA tenderness Extremity Exam: normal inspection, normal range of motion, pelvis stable Neurologic Exam: alert, oriented x 3, cooperative, leach runner II-XII nml as tested, normal mood/affect, nml cerebellar function, nml station & gait Skin Exam: normal color, warm, dry Lymphatic Exam: No adenopathy SpO2 Interpretation: normal O2 Delivery: Room Air - Course Nursing assessment & vital signs reviewed: Yes EKG Interpreted by Me: RATE (78), Sinus Rhythm, NORMAL AXIS, NORMAL INTERVALS, Other (No change from comparison EKG in July 2019. There is no evidence of any acute ischemic changes) Ordered Tests: Active Orders 24 hr Category Date Time Status EKG-ER Only STAT Care 02/25/20 00:57 Active IV Insertion STAT Care 02/25/20 00:57 Active Isolation, Initiate & Maintain Q12H Care 02/25/20 01:06 Active Pulse Oximetry (ED) STAT Care 02/25/20 00:57 Active CBC W DIFF Stat Lab 02/25/20 01:20 Completed CMP Stat Lab 02/25/20 01:20 Completed NT PRO BNP Stat Lab 02/25/20 01:20 Completed PROTIME WITH INR Stat Lab 02/25/20 01:20 Completed TROPONIN Q3H Lab 02/25/20 01:20 Completed TROPONIN Q3H Lab 02/25/20 04:00 Ordered TROPONIN Q3H Lab 02/25/20 07:00 Ordered TROPONIN Q3H Lab 02/25/20 10:00 Ordered TROPONIN Q3H Lab 02/25/20 13:00 Ordered Medication Summary Generic Name Dose Route Start Last Admin Trade Name Freq PRN Reason Stop Dose Admin Hydralazine HCl 5 mg 02/25/20 02:27 Apresoline 20 Mg/Ml Inj IV 03/26/20 02:26 [id number] PRN HYPERTENSION Discontinued Medications Generic Name Dose Route Start Last Admin Trade Name Freq PRN Reason Stop Dose Admin Aspirin 324 mg 02/25/20 00:57 02/25/20 01:30 Baby Aspirin 81 Mg Chew PO 02/25/20 00:58 Not Given STAT ONE Hydralazine HCl 10 mg 02/25/20 01:10 02/25/20 01:37 Apresoline 20 Mg/Ml Inj IV 02/25/20 01:11 10 mg STAT ONE Administration Hydralazine HCl Confirm 02/25/20 01:33 Apresoline 20 Mg/Ml Inj Administered 02/25/20 01:34 Dose 20 mg .ROUTE .STK-MED ONE Lorazepam 0.5 mg 02/25/20 02:28 Ativan 2 Mg/1 Ml Vial IV 02/25/20 02:29 STAT ONE Ondansetron HCl 4 mg 02/25/20 01:11 02/25/20 01:30 Zofran 4 Mg/2 Ml Vial IV 02/25/20 01:12 Not Given STAT ONE Pantoprazole Sodium 40 mg 02/25/20 01:11 02/25/20 01:37 Protonix 40 Mg Iv IV 02/25/20 01:12 40 mg STAT ONE Administration Pantoprazole Sodium Confirm 02/25/20 01:33 Protonix 40 Mg Iv Administered 02/25/20 01:34 Dose 40 mg IV .STK-MED ONE Lab/Rad Data: Laboratory Result Diagrams 02/25/20 01:20 02/25/20 01:20 Laboratory Results 02/25/20 02/25/20 02/25/20 Range/Units 01:20 01:20 01:20 WBC (4.0-10.5) K/mm3 RBC (4.1-5.4) M/mm3 Hgb (12.0-16.0) gm/dl Hct (35-47) % MCV (78-100) fl MCH (26-32) pg MCHC (32-36) g/dl RDW (11.5-14.0) % Plt Count (150-450) K/mm3 MPV (7.5-11.0) fl Gran % (36.0-66.0) % Eos # (Auto) (0-0.5) Absolute Lymphs (auto) (1.0-4.6) Absolute Monos (auto) (0.0-1.3) Lymphocytes % (24.0-44.0) % Monocytes % (0.0-12.0) % Eosinophils % (0.00-5.0) % Basophils % (0.0-0.4) % Absolute Granulocytes (1.4-6.9) Basophils # (0-0.4) PT 13.4 H (9.95-12.35) SECONDS INR 1.18 (0.8-3.0) Sodium 139 (137-145) mmol/L Potassium 4.9 (3.5-5.1) mmol/L Chloride 95 L (98-107) mmol/L Carbon Dioxide 31 H (22-30) mmol/L Anion Gap 18.0 H (5-15) MEQ/L BUN 69 H (7-17) mg/dL Creatinine 12.22 H (0.52-1.04) mg/dL Estimated GFR 3.3 ML/MIN Glucose 129 H (74-106) mg/dL Calcium 9.5 (8.4-10.2) mg/dL Total Bilirubin 0.60 (0.2-1.3) mg/dL AST 12 L (14-36) U/L ALT 7 (0-35) U/L Alkaline Phosphatase 69 (38-126) U/L Troponin I 0.057 H* (0.000-0.034) ng/mL NT-Pro-B Natriuret Pep [id number] H (0-900) pg/mL Serum Total Protein 7.1 (6.3-8.2) g/dL Albumin 4.4 (3.5-5.0) g/dL 02/25/20 Range/Units 01:20 WBC 6.1 (4.0-10.5) K/mm3 RBC 3.57 L (4.1-5.4) M/mm3 Hgb 8.9 L (12.0-16.0) gm/dl Hct 29.4 L (35-47) % MCV 82.4 (78-100) fl MCH 24.9 L (26-32) pg MCHC 30.3 L (32-36) g/dl RDW 17.9 H (11.5-14.0) % Plt Count 155 (150-450) K/mm3 MPV 10.9 (7.5-11.0) fl Gran % 67.9 H (36.0-66.0) % Eos # (Auto) 0.16 (0-0.5) Absolute Lymphs (auto) 1.25 (1.0-4.6) Absolute Monos (auto) 0.49 (0.0-1.3) Lymphocytes % 20.5 L (24.0-44.0) % Monocytes % 8.0 (0.0-12.0) % Eosinophils % 2.6 (0.00-5.0) % Basophils % 1.0 (0.0-0.4) % Absolute Granulocytes 4.13 (1.4-6.9) Basophils # 0.06 (0-0.4) PT (9.95-12.35) SECONDS INR (0.8-3.0) Sodium (137-145) mmol/L Potassium (3.5-5.1) mmol/L Chloride (98-107) mmol/L Carbon Dioxide (22-30) mmol/L Anion Gap (5-15) MEQ/L BUN (7-17) mg/dL Creatinine (0.52-1.04) mg/dL Estimated GFR ML/MIN Glucose (74-106) mg/dL Calcium (8.4-10.2) mg/dL Total Bilirubin (0.2-1.3) mg/dL AST (14-36) U/L ALT (0-35) U/L Alkaline Phosphatase (38-126) U/L Troponin I (0.000-0.034) ng/mL NT-Pro-B Natriuret Pep (0-900) pg/mL Serum Total Protein (6.3-8.2) g/dL Albumin (3.5-5.0) g/dL - Progress Progress: unchanged Air Movement: good Progress Note: 02/25/20 02:32 Medical decision making: This patient has multiple medical problems. She is noncompliant. She has several issues today and is in need of specialists. Patient has a GFR of 3.3 she needs to be dialyzed. She has a BNP of 134,000 and a troponin of 0.057. She needs to be where she can be seen by a tuber machine operator and newspaper photo editor if needed. Patient does not recall the name of her tuber machine operator but does know that she goes to [facility] to see specialists. I spoke with Dr. Chow who is the emergency room physician on this morning at [facility]. He accepts her for transfer. Blood Culture(s) Obtained: No Antibiotics given: No Counseled pt/family regarding: lab results, diagnosis, need for follow-up, rad results - Departure Departure Disposition: Transfer Clinical Impression: Renal failure, Hypertensive urgency, Chest pain, Elevated troponin, Congestive heart failure Condition: Fair Critical Care Time: Yes Critical Care Time(excluding separately billable procedures): Critical 30-74 mins Referrals: DOCTOR,NO FAMILY [Primary Care Provider] - Instructions: Heart Failure
[2020-02-25] MEDS ORDERED: APRESOLINE 20 MG/ML INJ IV ONE (01:10)
[2020-02-25] MEDS ORDERED: PROTONIX 40 MG IV IV ONE ×2 (01:11→01:33)
[2020-02-25] MEDS ORDERED: Zofran 4 MG/2 ML VIAL IV ONE (01:11)
[2020-02-25 01:27] LABS: Absolute Neutrophil Ct (ANC) 4.13 (1.4-6.9); Basophil (Absolute #) 0.06 (0-0.4); Eosinophil % 2.6 % (0.00-5.0); Eosinophil (Absolute #) 0.16 (0-0.5); Hematocrit 29.4 % (35-47); Hemoglobin 8.9 gm/dl (12.0-16.0); Lymphocyte (Absolute #) 1.25 (1.0-4.6); Lymphocytes % 20.5 % (24.0-44.0); Mean Cell Volume 82.4 fl (78-100); Mean Corpuscular Hemoglobin 24.9 pg (26-32); Mean Corpuscular Hgb Concent. 30.3 g/dl (32-36); Mean Platelet Volume 10.9 fl (7.5-11.0); Monocyte (Absolute #) 0.49 (0.0-1.3); Neutrophil % 67.9 % (36.0-66.0); Platelet Count 155 K/mm3 (150-450); Red Blood Count 3.57 M/mm3 (4.1-5.4); Red Cell Distribution Width 17.9 % (11.5-14.0); White Blood Count 6.1 K/mm3 (4.0-10.5)
[2020-02-25 01:32] LABS: INR 1.18 (0.8-3.0); PROTIME 13.4 SECONDS (9.95-12.35)
[2020-02-25] MEDS ORDERED: APRESOLINE 20 MG/ML INJ ONE (01:33)
[2020-02-25 01:45] LABS: ALBUMIN 4.4 g/dL (3.5-5.0); BILIRUBIN,TOTAL 0.6 mg/dL (0.2-1.3); Calcium 9.5 mg/dL (8.4-10.2); Creatinine 1 12.22 mg/dL (0.52-1.04); Potassium 4.9 mmol/L (3.5-5.1); Total Protein 7.1 g/dL (6.3-8.2)
[2020-02-25 02:10] VITALS: PULSE 86
[2020-02-25] MEDS ORDERED: APRESOLINE 20 MG/ML INJ IV PRN (02:27)
[2020-02-25] MEDS ORDERED: Ativan 2 MG/1 ML VIAL IV ONE (02:28)
[2020-02-25] MEDS ORDERED: Ativan 2 MG/1 ML VIAL ONE (02:30)
[2020-02-25 03:03] VITALS: BP 157/71; O2SAT 97
== END 2020-02-25 03:02 | disposition short-term general hospital (02) ==
LOC: ED 00:48
DX: N19 Unspecified kidney failure (principal); I16.0 Hypertensive urgency; R07.9 Chest pain, unspecified; R74.8 Abnormal levels of other serum enzymes; I50.9 Heart failure, unspecified; Z91.19 Patient's noncompliance with other medical treatment and regimen; E11.9 Type 2 diabetes mellitus without complications; G62.9 Polyneuropathy, unspecified; Z79.899 Other long term (current) drug therapy
CPT/HCPCS: 36000; 36415; 80053; 83880; 84484; 85025; 85610; 93005; 94760; 96374; 96375; 96376; 99285; 99291; J0360; J2060

== ENCOUNTER 2020-03-27 14:35 | Emergency (ER) | payer MEDICARE, BC ==
[2020-03-27] MEDS ORDERED: Zofran 4 MG/2 ML VIAL IV ONE (15:04)
--- NOTE | 2020-03-27 15:05 | ERPHSYRPT ---
- History of Present Illness Time Seen by Provider: 03/27/20 14:36 Source: patient Exam Limitations: no limitations Patient Subjective Stated Complaint: pt here for weakness for last couple months , vomiting after every meal for a month now, she also states she passed out and slipped out of chair this morning after dialyisis, she has been seen at local er x2 this week, and is frustrated she does not have a dx Triage Nursing Assessment: pt alert, walked in with walker.she states she did not want to come but her made her, skin w/d/p, has abrasion to back that she states started out as a rash, she has fistula to left upper arm, she states she feels like she is dying Physician History: Patient is here for 3 weeks of nausea and vomiting. Patient states that her symptoms started then. She has no falls or other trauma. Patient is a dialysis patient. She did have a full run of dialysis today. She denies any other dialysis sessions that she missed. Patient states that she has been to the ER 3 times over the past 3 weeks. She has been to [facility] in [place] and [facility]. Patient states that she has no primary care physician to follow-up with. 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 The patient had another episode of vomiting today. This led to a near syncopal episode. Therefore, her called EMS. Patient was able to ambulate to her room in a walker. Location: generalized Quality: weakness, N/V Radiation: none Severity: moderate Duration: 3 weeks Timing: gradual Modifying factors/associated signs and symptoms: has been seen in the ER 3 times already Allergies/Adverse Reactions: codeine Allergy (Verified 03/27/20 14:50) pineapple Adverse Reaction (Verified 03/27/20 14:50) Home Medications: Amlodipine Besylate 5 mg [Norvasc 5 mg] 2.5 mg PO BID 08/23/19 [History] Aspirin [Aspirin EC] 81 mg PO DAILY 08/23/19 [History] Clonidine HCl 0.2 mg PO TID 08/23/19 [History] Fluoxetine HCl 20 mg [Prozac 20 MG] 20 mg PO DAILY 08/23/19 [History] Hydralazine HCl 100 mg PO TID 08/23/19 [History] Metoclopramide HCl 5 mg PO BID PRN 08/23/19 [History] PANTOPRAZOLE 40 mg Tablet [Protonix 40MG Tablet] 40 mg PO DAILY 08/23/19 [ History] Sucralfate 1 gm PO DAILY 08/23/19 [History] Hx Tetanus, Diphtheria Vaccination/Date Given: No Hx Influenza Vaccination/Date Given: Yes Hx Pneumococcal Vaccination/Date Given: Yes Immunizations Up to Date: Yes Travel Risk - International Travel Have you traveled outside of the country in past 3 weeks: No - Coronavirus Screening Are you exhibiting any of the following symptoms?: Yes Symptoms: Headaches/Body Aches/Fatigue Close contact with a COVID-19 positive Pt in past 14-21 Days: No - Review of Systems Constitutional: Weakness, No Fever, No Chills Eyes: No Symptoms Ears, Nose, & Throat: No Symptoms Respiratory: No Cough, No Dyspnea Cardiac: No Chest Pain, No Edema, No Syncope Abdominal/Gastrointestinal: Nausea, Vomiting, No Abdominal Pain, No Diarrhea Genitourinary Symptoms: No Dysuria Musculoskeletal: No Back Pain, No Neck Pain Skin: No Rash Neurological: No Dizziness, No Focal Weakness, No Sensory Changes Psychological: No Symptoms Endocrine: No Symptoms All Other Systems: Reviewed and Negative - Past Medical History Pertinent Past Medical History: Yes Neurological History: Stroke ENT History: No Pertinent History Cardiac History: No Pertinent History Respiratory History: No Pertinent History Endocrine Medical History: Diabetes Type II Musculoskeletal History: No Pertinent History GI Medical History: No Pertinent History History: Renal Disease Psycho-Social History: No Pertinent History Female Reproductive Disorders: No Pertinent History Other Medical History: neruopathy - Past Surgical History Past Surgical History: Yes Neuro Surgical History: No Pertinent History Cardiac: No Pertinent History Respiratory: No Pertinent History Gastrointestinal: Cholecystectomy Genitourinary: No Pertinent History Musculoskeletal: Orthopedic Surgery Female Surgical History: No Pertinent History Other Surgical History: GALLBLADDER REMOVAL,BILATERAL SHOULDER - Social History Smoking Status: Never smoker Exposure to second hand smoke: No Drug Use: none Patient Lives Alone: No Significant Family History: diabetes, DVT/PE - Female History Hx Last Menstrual Period: post Hx Now: No - Nursing Vital Signs Nursing Vital Signs: Initial Vital Signs Temperature 97 F 03/27/20 14:41 Pulse Rate 72 03/27/20 14:41 Respiratory Rate 14 03/27/20 14:41 Blood Pressure 168/80 03/27/20 14:41 O2 Sat by Pulse Oximetry 94 L 03/27/20 14:41 Pain Scale Pain Intensity 0 - Physical Exam General Appearance: no apparent distress, alert Eye Exam: PERRL/EOMI, eyes nml inspection Ears, Nose, Throat Exam: normal ENT inspection, TMs normal, pharynx normal, moist mucous membranes Neck Exam: normal inspection, non-tender, supple, full range of motion Respiratory Exam: normal breath sounds, lungs clear, No respiratory distress Cardiovascular Exam: regular rate/rhythm, normal heart sounds, normal peripheral pulses Gastrointestinal/Abdomen Exam: soft, normal bowel sounds, No tenderness, No mass Back Exam: normal inspection, normal range of motion, No CVA tenderness, No vertebral tenderness Extremity Exam: normal inspection, normal range of motion, pelvis stable Neurologic Exam: alert, oriented x 3, cooperative, normal mood/affect, nml cerebellar function, nml station & gait, sensation nml, No motor deficits Skin Exam: normal color, warm, dry, No rash Lymphatic Exam: No adenopathy SpO2: 94 Ordered Tests: Active Orders 24 hr Category Date Time Status Computer Teacher STAT Care 03/27/20 14:56 Active EKG-ER Only STAT Care 03/27/20 14:55 Active IV Insertion STAT Care 03/27/20 14:55 Active CHEST 2 VIEWS (PA AND LAT) Stat Exams 03/27/20 14:56 Completed HEAD WITHOUT CONTRAST [CT] Stat Exams 03/27/20 14:56 Completed CBC W DIFF Stat Lab 03/27/20 15:10 Completed CMP Stat Lab 03/27/20 15:10 Completed NT PRO BNP Stat Lab 03/27/20 15:10 Completed TROPONIN Q3H Lab 03/27/20 15:10 Completed TROPONIN Q3H Lab 03/27/20 18:00 Ordered TROPONIN Q3H Lab 03/27/20 21:00 Ordered TROPONIN Q3H Lab 03/28/20 00:00 Ordered TROPONIN Q3H Lab 03/28/20 03:00 Ordered Medication Summary Discontinued Medications Generic Name Dose Route Start Last Admin Trade Name Freq PRN Reason Stop Dose Admin Ondansetron HCl 8 mg 03/27/20 15:04 03/27/20 17:24 Zofran 4 Mg/2 Ml Vial IV 03/27/20 15:05 Not Given STAT ONE Lab/Rad Data: Laboratory Result Diagrams 03/27/20 15:10 03/27/20 15:10 Laboratory Results 03/27/20 03/27/20 03/27/20 Range/Units 15:10 15:10 15:10 WBC 3.4 L (4.0-10.5) K/mm3 RBC 3.39 L (4.1-5.4) M/mm3 Hgb 8.9 L (12.0-16.0) gm/dl Hct 29.4 L (35-47) % MCV 86.7 (78-100) fl MCH 26.3 (26-32) pg MCHC 30.3 L (32-36) g/dl RDW 19.0 H (11.5-14.0) % Plt Count 123 L (150-450) K/mm3 MPV 11.9 H (7.5-11.0) fl Gran % 67.0 H (36.0-66.0) % Eos # (Auto) 0.07 (0-0.5) Absolute Lymphs (auto) 0.69 L (1.0-4.6) Absolute Monos (auto) 0.30 (0.0-1.3) Lymphocytes % 20.5 L (24.0-44.0) % Monocytes % 8.9 (0.0-12.0) % Eosinophils % 2.1 (0.00-5.0) % Basophils % 1.5 (0.0-0.4) % Absolute Granulocytes 2.26 (1.4-6.9) Basophils # 0.05 (0-0.4) Sodium 138 (137-145) mmol/L Potassium 4.1 (3.5-5.1) mmol/L Chloride 93 L (98-107) mmol/L Carbon Dioxide 35 H (22-30) mmol/L Anion Gap 14.1 (5-15) MEQ/L BUN 13 (7-17) mg/dL Creatinine 3.34 H (0.52-1.04) mg/dL Estimated GFR 14.9 ML/MIN Glucose 175 H (74-106) mg/dL Calcium 9.3 (8.4-10.2) mg/dL Total Bilirubin 0.60 (0.2-1.3) mg/dL AST 22 (14-36) U/L ALT 12 (0-35) U/L Alkaline Phosphatase 55 (38-126) U/L Troponin I 0.043 H* (0.000-0.034) ng/mL NT-Pro-B Natriuret Pep [id number] H (0-900) pg/mL Serum Total Protein 6.8 (6.3-8.2) g/dL Albumin 4.1 (3.5-5.0) g/dL - Progress Progress: improved Progress Note: 03/27/20 15:04 - We'll obtain basic labs, fluids, EKG, troponin, chest x-ray. - EKG shows no ST changes - my read. See full read below. - O2 saturations consistently greater than 95%. - CXR shows no pneumonia, pneumothorax - my read 03/27/20 17:40 Patient found to have an elevated troponin and chest x-ray demonstrates some pleural effusion, CHF. I did discuss admission with the patient and Dr. Trevino. Dr. Trevino requested that we transfer patient to somewhere with dialysis. Therefore, I did discuss admission with the patient. [facility]. She states that she has been up there several times in their emergency department. Therefore, does not want to be seen there [facility]. Given this, we will sign patient out AGAINST MEDICAL ADVICE. We did discuss the risks and benefits of leaving this includes , serious morbidity or mortality. She is welcome to return here at any time to finish the work-up. She and her state their understanding. Her was amenable to admission. However, he ultimately went with what she wanted. Discussed with : Pawan Will see patient in: hospital (observation) Counseled pt/family regarding: lab results, diagnosis, need for follow-up, rad results - Departure Departure Disposition: Home, AMA Clinical Impression: CHF exacerbation Condition: Stable Critical Care Time: No Referrals: DOCTOR,NO FAMILY [Primary Care Provider] - Instructions: Heart Failure Prescriptions: Ondansetron ODT 4 MG [Zofran Odt 4 mg] 4 mg PO Q6H PRN PRN #10 tab.rapdis PRN Reason: Vomiting Ondansetron HCl [Zofran] 4 mg PO TID PRN #10 tablet PRN Reason: Nausea/Vomiting
[2020-03-27 15:19] LABS: Absolute Neutrophil Ct (ANC) 2.26 (1.4-6.9); BASOPHIL % 1.5 % (0.0-0.4); Basophil (Absolute #) 0.05 (0-0.4); Eosinophil % 2.1 % (0.00-5.0); Eosinophil (Absolute #) 0.07 (0-0.5); Hematocrit 29.4 % (35-47); Hemoglobin 8.9 gm/dl (12.0-16.0); Lymphocyte (Absolute #) 0.69 (1.0-4.6); Lymphocytes % 20.5 % (24.0-44.0); Mean Cell Volume 86.7 fl (78-100); Mean Corpuscular Hemoglobin 26.3 pg (26-32); Mean Corpuscular Hgb Concent. 30.3 g/dl (32-36); Mean Platelet Volume 11.9 fl (7.5-11.0); Monocytes % 8.9 % (0.0-12.0); Red Blood Count 3.39 M/mm3 (4.1-5.4); White Blood Count 3.4 K/mm3 (4.0-10.5)
[2020-03-27 15:27] LABS: Platelet Count 123 K/mm3 (150-450)
[2020-03-27 15:48] LABS: ALBUMIN 4.1 g/dL (3.5-5.0); ANION GAP 14.1 MEQ/L (5-15); BILIRUBIN,TOTAL 0.6 mg/dL (0.2-1.3); Calcium 9.3 mg/dL (8.4-10.2); Creatinine 1 3.34 mg/dL (0.52-1.04); Potassium 4.1 mmol/L (3.5-5.1); Total Protein 6.8 g/dL (6.3-8.2)
--- NOTE | 2020-03-27 16:28 | XRAY ---
Exam: Two-view chest from 03/27/2020. Comparison: AP upright portable chest film from 11/02/2019. Indication: Pneumonia. Findings: Upright AP and lateral chest films are submitted for evaluation. The heart size appears borderline enlarged. There is a mild left basilar pleural effusion. There may be a minimal posterior right pleural effusion as well. There is also some minimal pleural reaction within the lower aspect of the major fissures on the lateral image. No air space infiltrates are seen. The lung volumes are mildly decreased on the frontal view. No pneumothorax is evident. A long vascular stent is again seen in the projection of the left axillary artery and proximal brachial artery. The distal aspect of the stent has not been included on this study. Orthopedic hardware is seen within both proximal humeri representing no change. The bones are demineralized. Moderate lower dorsal kyphosis is seen. Extensive vascular calcification is seen within the upper abdomen, particularly the left upper quadrant. Impression: 1. Borderline cardiomegaly with a mild left basilar pleural effusion and probable minimal posterior right pleural effusion. Correlate clinically regarding fluid volume overload or mild chronic CHF. However, the radiographic appearance is actually improved from 11/02/2007. 2. No air space infiltrates are seen within either lung field. 3. The remainder of the findings appears unchanged.
--- NOTE | 2020-03-27 17:01 | XRAY ---
Exam: CT of the head without IV contrast from 03/27/2020. Comparison: CT of the head without IV contrast from 03/03/2016. Indication: 59-year-old female, confusion. Technique: Non-IV contrast axial images were obtained through the brain. Reconstructed coronal and sagittal images were created and reviewed. Findings: The ventricles appear of normal size. No focal mass effect or midline shift is seen. There is no evidence of acute intracranial bleed or abnormal extra-axial fluid collection. There appears to be a small lacunar infarct within the head of the right caudate nucleus on axial image #25. This is not definitely seen in the prior study from 03/03/2016. There is also a subtle lacunar infarct adjacent to the lateral margin of the anterior portion of the right lateral ventricle on axial images #28. This also is not definitely seen on the prior study. No larger territorial infarct is seen. There is mild prominence of the cortical sulci. Posterior fossa appears unremarkable. 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 There is no fracture. The visualized paranasal sinuses and orbits appear unremarkable. I again note some minimal chronic mucosal thickening within the lateral aspect of the left mastoid air cells representing no change. The remainder of the mastoids appears unremarkable. The middle ear cavities appear normal. Moderate vascular calcification is seen within both distal vertebral arteries. There is also significant atherosclerotic vascular calcification within both distal internal carotid arteries. Is this patient diabetic? Impression: 1. I see no acute intracranial bleed. 2. There appear to be a tiny lacunar infarct within the head of the right caudate nucleus and just lateral to the anterior aspect of the right lateral ventricle. These are not seen on the prior study from 03/03/2016. No larger territorial infarct is seen. 3. Mild cortical atrophy. 4. Extensive atherosclerotic vascular calcification and generalized hyperostosis of the calvarium of the skull are seen.
[2020-03-27 17:26] VITALS: BP 147/68; PULSE 71
[2020-03-27 17:32] VITALS: O2SAT 94
== END 2020-03-27 18:18 | disposition left against medical advice (07) ==
LOC: ED 14:35
DX: I50.9 Heart failure, unspecified (principal); Z86.73 Personal history of transient ischemic attack (TIA), and cerebral infarction without residual deficits
CPT/HCPCS: 36415; 70450; 71046; 80053; 83880; 84484; 85025; 93005; 93041; 99284

== ENCOUNTER 2020-04-17 09:32 | Emergency (ER) | payer MEDICARE, BC ==
--- NOTE | 2020-04-17 10:20 | XRAY ---
Indication: Cough. Comparison: March 27, 2020. Portable chest demonstrates worsening cardiomegaly, central vascular congestion, and moderate bibasilar effusions/atelectasis again favoring cardiac decompensation/CHF. Superimposed pneumonia not completely excluded.
[2020-04-17 10:51] LABS: INR 1.54 (0.8-3.0); PROTIME 17.5 SECONDS (9.95-12.35)
[2020-04-17 10:53] LABS: Absolute Neutrophil Ct (ANC) 4.14 (1.4-6.9); BASOPHIL % 0.7 % (0.0-0.4); Basophil (Absolute #) 0.04 (0-0.4); Eosinophil % 0.5 % (0.00-5.0); Eosinophil (Absolute #) 0.03 (0-0.5); Lymphocyte (Absolute #) 0.96 (1.0-4.6); Lymphocytes % 17.2 % (24.0-44.0); Mean Corpuscular Hemoglobin 26.1 pg (26-32); Mean Corpuscular Hgb Concent. 30.8 g/dl (32-36); Mean Platelet Volume 11.3 fl (7.5-11.0); Monocyte (Absolute #) 0.42 (0.0-1.3); Monocytes % 7.5 % (0.0-12.0); Neutrophil % 74.1 % (36.0-66.0); Platelet Count 269 K/mm3 (150-450); Red Blood Count 3.06 M/mm3 (4.1-5.4); Red Cell Distribution Width 20.4 % (11.5-14.0); White Blood Count 5.6 K/mm3 (4.0-10.5)
[2020-04-17] MEDS ORDERED: TORAdol 30 mg Injection IV ONE (10:55)
[2020-04-17] MEDS ORDERED: Zofran 4 MG/2 ML VIAL IV ONE (10:55)
[2020-04-17 10:58] LABS: ALBUMIN 4.4 g/dL (3.5-5.0); ANION GAP 29.4 MEQ/L (5-15); BILIRUBIN,TOTAL 0.5 mg/dL (0.2-1.3); Calcium 9.8 mg/dL (8.4-10.2); Creatinine 1 11.96 mg/dL (0.52-1.04)
[2020-04-17 11:07] LABS: Potassium 7.3 mmol/L (3.5-5.1)
[2020-04-17] MEDS ORDERED: TORAdol 30 mg Injection ONE (11:10)
[2020-04-17] MEDS ORDERED: Zofran 4 MG/2 ML VIAL ONE (11:10)
[2020-04-17] MEDS ORDERED: Kayexylate 15 GM/60 ML PO ONE (11:28)
[2020-04-17] MEDS ORDERED: HUMULIN R IV ONE (11:28)
[2020-04-17] MEDS ORDERED: SODIUM BICARBONATE 50 MEQ/50 ML ABBOJECT IV ONE ×2 (11:28→12:05)
[2020-04-17] MEDS ORDERED: D50W 50 ml Abboject IV ONE ×3 (11:28→12:06)
[2020-04-17] MEDS ORDERED: Calcium Gluconate 10% 1000 MG IV ONE ×2 (11:28→12:02)
[2020-04-17] MEDS ORDERED: PROVENTIL 2.5 MG/3 ML NEB IH ONE ×2 (11:28→11:56)
[2020-04-17 11:50] LABS: Appearance CLEAR (CLEAR); Bacteria RARE /HPF (NEGATIVE); Bilirubin NEGATIVE (NEGATIVE); Blood NEGATIVE Ery/ul (0-5); Glucose >=500 mg/dL (NEGATIVE); Granular Casts 0-2 /LPF (NEGATIVE); Ketones NEGATIVE (NEGATIVE); Leukocyte Esterase NEGATIVE (NEGATIVE); Mucus SLIGHT /HPF (NEGATIVE); Nitrite NEGATIVE (NEGATIVE); Non-Squamous Epithelial Cells RARE /HPF (FEW); Protein,Urine Dip >=500 (Negative); Specific Gravity 1.013 (1.005-1.025); Urobilinogen NEGATIVE mg/dL (0-1)
[2020-04-17] MEDS ORDERED: HUMULIN R ONE (12:04)
[2020-04-17] MEDS ORDERED: Kayexylate 15 GM/60 ML ONE (12:05)
--- NOTE | 2020-04-17 12:05 | ERPHSYRPT ---
- History of Present Illness Time Seen by Provider: 04/17/20 10:00 Source: patient Exam Limitations: no limitations Patient Subjective Stated Complaint: Back pain Triage Nursing Assessment: Patient brought into ED via EMS and transferred to bed with assist of 2. Patient A+O X3. Patient's skin pink, warm and dry. Patient complains of back pain. Patient has several open areas to mid and upper back. Patient also complains of N/V. Patient states she has not been to dialysis for one week due to her refusing to take her. Physician History: David is a 59-year-old white female who presents with a complaint of back pain she by nursing report has a long history of noncompliance with her dialysis. She also complains of nausea. Timing/Duration: week(s) Severity: moderate Allergies/Adverse Reactions: codeine Allergy (Verified 04/17/20 09:42) pineapple Adverse Reaction (Verified 04/17/20 09:42) Home Medications: Amlodipine Besylate 5 mg [Norvasc 5 mg] 2.5 mg PO BID 08/23/19 [History] Aspirin [Aspirin EC] 81 mg PO DAILY 08/23/19 [History] Clonidine HCl 0.2 mg PO TID 08/23/19 [History] Fluoxetine HCl 20 mg [Prozac 20 MG] 20 mg PO DAILY 08/23/19 [History] Hydralazine HCl 100 mg PO TID 08/23/19 [History] Metoclopramide HCl 5 mg PO BID PRN 08/23/19 [History] PANTOPRAZOLE 40 mg Tablet [Protonix 40MG Tablet] 40 mg PO DAILY 08/23/19 [History] Sucralfate 1 gm PO DAILY 08/23/19 [History] Hx Tetanus, Diphtheria Vaccination/Date Given: No Hx Influenza Vaccination/Date Given: Yes Hx Pneumococcal Vaccination/Date Given: Yes Immunizations Up to Date: Yes Travel Risk - International Travel Have you traveled outside of the country in past 3 weeks: No - Coronavirus Screening Are you exhibiting any of the following symptoms?: No Close contact with a COVID-19 positive Pt in past 14-21 Days: No - Review of Systems All Other Systems: Unable due to condition (And is unwilling to answer questions very unpleasant) - Past Medical History Pertinent Past Medical History: Yes Neurological History: Stroke ENT History: No Pertinent History Cardiac History: No Pertinent History Respiratory History: No Pertinent History Endocrine Medical History: Diabetes Type II Musculoskeletal History: No Pertinent History GI Medical History: No Pertinent History History: Renal Disease Psycho-Social History: No Pertinent History Female Reproductive Disorders: No Pertinent History Other Medical History: neruopathy - Past Surgical History Past Surgical History: Yes Neuro Surgical History: No Pertinent History Cardiac: No Pertinent History Respiratory: No Pertinent History Gastrointestinal: Cholecystectomy Genitourinary: No Pertinent History Musculoskeletal: Orthopedic Surgery Female Surgical History: No Pertinent History Other Surgical History: GALLBLADDER REMOVAL,BILATERAL SHOULDER - Social History Smoking Status: Never smoker Exposure to second hand smoke: No Drug Use: none Patient Lives Alone: No Significant Family History: diabetes, DVT/PE - Nursing Vital Signs Nursing Vital Signs: Initial Vital Signs Temperature 98.0 F 04/17/20 09:46 Pulse Rate 85 04/17/20 09:46 Respiratory Rate 18 04/17/20 09:46 Blood Pressure 161/86 04/17/20 09:46 O2 Sat by Pulse Oximetry 94 L 04/17/20 09:46 Pain Scale Pain Intensity 6 - Physical Exam General Appearance: moderate distress, alert Eye Exam: PERRL/EOMI, eyes nml inspection Ears, Nose, Throat Exam: normal ENT inspection, TMs normal, pharynx normal, moist mucous membranes Neck Exam: normal inspection, non-tender, supple, full range of motion Respiratory Exam: normal breath sounds, lungs clear, No respiratory distress Cardiovascular Exam: regular rate/rhythm, normal heart sounds, normal peripheral pulses Gastrointestinal/Abdomen Exam: normal bowel sounds, tenderness, guarding, No mass Back Exam: normal inspection, normal range of motion, No CVA tenderness, No vertebral tenderness Extremity Exam: normal inspection, normal range of motion, pelvis stable Neurologic Exam: alert, oriented x 3, cooperative, normal mood/affect, nml cerebellar function, nml station & gait, sensation nml, No motor deficits Skin Exam: normal color, warm, dry, No rash Lymphatic Exam: No adenopathy SpO2: 95 - Course Nursing assessment & vital signs reviewed: Yes EKG Interpreted by Me: RATE (84), NORMAL AXIS, Left Bundle Branch Block, Non- specific ST Changes - Radiology Exams Chest X-ray Interpretation: Other (Chest x-ray shows worsening cardiomegaly central vascular congestion and moderate bilateral effusions favoring cardiac decompensation CHF superimposed pneumonia not completely excluded) Ordered Tests: Active Orders 24 hr Category Date Time Status Accucheck STAT Care 04/17/20 11:28 Active EKG-ER Only STAT Care 04/17/20 09:51 Active IV Insertion STAT Care 04/17/20 09:51 Active CHEST 1 VIEW (PORTABLE) Stat Exams 04/17/20 09:52 Completed AMYLASE Stat Lab 04/17/20 10:20 Completed BLOOD CULTURE Stat Lab 04/17/20 10:40 Received CBC W DIFF Stat Lab 04/17/20 10:20 Completed CMP Stat Lab 04/17/20 10:20 Completed LIPASE Stat Lab 04/17/20 10:20 Completed Lactic Acid Stat Lab 04/17/20 09:51 Completed PROTIME WITH INR Stat Lab 04/17/20 10:20 Completed TROPONIN Q3H Lab 04/17/20 10:20 Completed TROPONIN Q3H Lab 04/17/20 13:00 Ordered TROPONIN Q3H Lab 04/17/20 16:00 Ordered TROPONIN Q3H Lab 04/17/20 19:00 Ordered TROPONIN Q3H Lab 04/17/20 22:00 Ordered UA W/RFX UR CULTURE Stat Lab 04/17/20 11:41 Completed Medication Summary Discontinued Medications Generic Name Dose Route Start Last Admin Trade Name Freq PRN Reason Stop Dose Admin Albuterol Sulfate 2.5 mg 04/17/20 11:28 Proventil 2.5 Mg/3 Ml Neb IH 04/17/20 11:29 STAT ONE Albuterol Sulfate Confirm 04/17/20 11:56 Proventil 2.5 Mg/3 Ml Neb Administered 04/17/20 11:57 Dose 2.5 mg IH .STK-MED ONE Calcium Gluconate 1,000 mg 04/17/20 11:28 Calcium Gluconate 10% 1000 Mg IV 04/17/20 11:29 STAT ONE Dextrose 50 ml 04/17/20 11:28 D50w 50 Ml Abboject IV 04/17/20 11:29 STAT ONE Insulin Human Regular 10 unit 04/17/20 11:28 Humulin R IV 04/17/20 11:29 STAT ONE Ketorolac Tromethamine 30 mg 04/17/20 10:55 04/17/20 11:29 Toradol 30 Mg Injection IV 04/17/20 10:56 30 mg STAT ONE Administration Ketorolac Tromethamine Confirm 04/17/20 11:10 Toradol 30 Mg Injection Administered 04/17/20 11:11 Dose 30 mg .ROUTE .STK-MED ONE Ondansetron HCl 4 mg 04/17/20 10:55 04/17/20 11:29 Zofran 4 Mg/2 Ml Vial IV 04/17/20 10:56 4 mg STAT ONE Administration Ondansetron HCl Confirm 04/17/20 11:10 Zofran 4 Mg/2 Ml Vial Administered 04/17/20 11:11 Dose 4 mg .ROUTE .STK-MED ONE Sodium Bicarbonate 50 meq 04/17/20 11:28 Sodium Bicarbonate 50 Meq/50 Ml Abboject IV 04/17/20 11:29 STAT ONE Sodium Polystyrene Sulfonate 30 g 04/17/20 11:28 Kayexylate 15 Gm/60 Ml PO 04/17/20 11:29 STAT ONE Lab/Rad Data: Laboratory Result Diagrams 04/17/20 10:20 04/17/20 10:20 Laboratory Results 04/17/20 04/17/20 04/17/20 Range/Units 11:41 10:20 10:20 WBC (4.0-10.5) K/mm3 RBC (4.1-5.4) M/mm3 Hgb (12.0-16.0) gm/dl Hct (35-47) % MCV (78-100) fl MCH (26-32) pg MCHC (32-36) g/dl RDW (11.5-14.0) % Plt Count (150-450) K/mm3 MPV (7.5-11.0) fl Gran % (36.0-66.0) % Eos # (Auto) (0-0.5) Absolute Lymphs (auto) (1.0-4.6) Absolute Monos (auto) (0.0-1.3) Lymphocytes % (24.0-44.0) % Monocytes % (0.0-12.0) % Eosinophils % (0.00-5.0) % Basophils % (0.0-0.4) % Absolute Granulocytes (1.4-6.9) Basophils # (0-0.4) PT 17.5 H (9.95-12.35) SECONDS INR 1.54 (0.8-3.0) Sodium (137-145) mmol/L Potassium (3.5-5.1) mmol/L Chloride (98-107) mmol/L Carbon Dioxide (22-30) mmol/L Anion Gap (5-15) MEQ/L BUN (7-17) mg/dL Creatinine (0.52-1.04) mg/dL Estimated GFR ML/MIN Glucose (74-106) mg/dL Lactic Acid (0.4-2.0) Calcium (8.4-10.2) mg/dL Total Bilirubin (0.2-1.3) mg/dL AST (14-36) U/L ALT (0-35) U/L Alkaline Phosphatase (38-126) U/L Troponin I 0.089 H* (0.000-0.034) ng/mL Serum Total Protein (6.3-8.2) g/dL Albumin (3.5-5.0) g/dL Amylase (30-110) U/L Lipase (23-300) U/L Urine Color YELLOW (YELLOW) Urine Appearance CLEAR (CLEAR) Urine pH 7.0 (5-6) Ur Specific [place] 1.013 (1.005-1.025) Urine Protein >=500 (Negative) Urine Ketones NEGATIVE (NEGATIVE) Urine Blood NEGATIVE (0-5) Joe/ul Urine Nitrite NEGATIVE (NEGATIVE) Urine Bilirubin NEGATIVE (NEGATIVE) Urine Urobilinogen NEGATIVE (0-1) mg/dL Ur Leukocyte Esterase NEGATIVE (NEGATIVE) Urine WBC (Auto) 3-5 (0-5) /HPF Urine RBC (Auto) NONE (0-2) /HPF U Epithel Cells (Auto) NONE (FEW) /HPF Urine Bacteria (Auto) RARE (NEGATIVE) /HPF U Non-Squamous Epi Cells RARE (FEW) /HPF Granular Casts (Auto) 0-2 (NEGATIVE) /LPF Urine Mucus (Auto) SLIGHT (NEGATIVE) /HPF Urine Culture Reflexed NO (NO) Urine Glucose >=500 (NEGATIVE) mg/dL 04/17/20 04/17/20 04/17/20 Range/Units 10:20 10:20 09:51 WBC 5.6 (4.0-10.5) K/mm3 RBC 3.06 L (4.1-5.4) M/mm3 Hgb 8.0 L (12.0-16.0) gm/dl Hct 26.0 L (35-47) % MCV 85.0 (78-100) fl MCH 26.1 (26-32) pg MCHC 30.8 L (32-36) g/dl RDW 20.4 H (11.5-14.0) % Plt Count 269 (150-450) K/mm3 MPV 11.3 H (7.5-11.0) fl Gran % 74.1 H (36.0-66.0) % Eos # (Auto) 0.03 (0-0.5) Absolute Lymphs (auto) 0.96 L (1.0-4.6) Absolute Monos (auto) 0.42 (0.0-1.3) Lymphocytes % 17.2 L (24.0-44.0) % Monocytes % 7.5 (0.0-12.0) % Eosinophils % 0.5 (0.00-5.0) % Basophils % 0.7 (0.0-0.4) % Absolute Granulocytes 4.14 (1.4-6.9) Basophils # 0.04 (0-0.4) PT (9.95-12.35) SECONDS INR (0.8-3.0) Sodium 137 (137-145) mmol/L Potassium 7.3 H* (3.5-5.1) mmol/L Chloride 94 L (98-107) mmol/L Carbon Dioxide 21 L (22-30) mmol/L Anion Gap 29.4 H (5-15) MEQ/L BUN 122 H (7-17) mg/dL Creatinine 11.96 H (0.52-1.04) mg/dL Estimated GFR 3.4 ML/MIN Glucose 170 H (74-106) mg/dL Lactic Acid 1.6 (0.4-2.0) Calcium 9.8 (8.4-10.2) mg/dL Total Bilirubin 0.50 (0.2-1.3) mg/dL AST 63 H (14-36) U/L ALT 60 H (0-35) U/L Alkaline Phosphatase 83 (38-126) U/L Troponin I (0.000-0.034) ng/mL Serum Total Protein 7.0 (6.3-8.2) g/dL Albumin 4.4 (3.5-5.0) g/dL Amylase 337 H (30-110) U/L Lipase 2769 H (23-300) U/L Urine Color (YELLOW) Urine Appearance (CLEAR) Urine pH (5-6) Ur Specific [place] (1.005-1.025) Urine Protein (Negative) Urine Ketones (NEGATIVE) Urine Blood (0-5) Joe/ul Urine Nitrite (NEGATIVE) Urine Bilirubin (NEGATIVE) Urine Urobilinogen (0-1) mg/dL Ur Leukocyte Esterase (NEGATIVE) Urine WBC (Auto) (0-5) /HPF Urine RBC (Auto) (0-2) /HPF U Epithel Cells (Auto) (FEW) /HPF Urine Bacteria (Auto) (NEGATIVE) /HPF U Non-Squamous Epi Cells (FEW) /HPF Granular Casts (Auto) (NEGATIVE) /LPF Urine Mucus (Auto) (NEGATIVE) /HPF Urine Culture Reflexed (NO) Urine Glucose (NEGATIVE) mg/dL - Progress Progress: improved - Departure Departure Disposition: Transfer (Patient will be transferred to [facility] for dialysis on an urgent basis Dr. Mrorow the accepting physician) Clinical Impression: Renal failure (ARF), acute on chronic, Elevated troponin I level, Congestive heart failure Condition: Serious Critical Care Time: Yes Critical Care Time(excluding separately billable procedures): Critical 30-74 mins Referrals: DOCTOR,NO FAMILY [Primary Care Provider] - Instructions: Heart Failure
[2020-04-17 14:15] VITALS: BP 182/78; PULSE 95; O2SAT 98
== END 2020-04-17 14:43 | disposition short-term general hospital (02) ==
LOC: ED 09:32
DX: N17.9 Acute kidney failure, unspecified (principal); N18.9 Chronic kidney disease, unspecified; R74.8 Abnormal levels of other serum enzymes; E11.9 Type 2 diabetes mellitus without complications; Z79.899 Other long term (current) drug therapy
CPT/HCPCS: 36000; 36415; 71045; 80053; 81001; 82150; 83605; 83690; 84484; 85025; 85610; 87040; 93005; 94640; 96374; 96375; 99285; 99291; J0610; J1815; J1885; J2405; J7609; A9270-GY

== ENCOUNTER 2020-05-29 21:07 | Emergency (ER) | payer BC, MEDICARE ==
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
[2020-05-29 22:16] LABS: Absolute Neutrophil Ct (ANC) 5.45 (1.4-6.9); BASOPHIL % 0.6 % (0.0-0.4); Basophil (Absolute #) 0.05 (0-0.4); Eosinophil % 3.3 % (0.00-5.0); Eosinophil (Absolute #) 0.26 (0-0.5); Hematocrit 27.9 % (35-47); Hemoglobin 8.3 gm/dl (12.0-16.0); Lymphocyte (Absolute #) 1.31 (1.0-4.6); Lymphocytes % 16.7 % (24.0-44.0); Mean Corpuscular Hemoglobin 26.8 pg (26-32); Mean Corpuscular Hgb Concent. 29.7 g/dl (32-36); Mean Platelet Volume 10.6 fl (7.5-11.0); Monocyte (Absolute #) 0.78 (0.0-1.3); Monocytes % 9.9 % (0.0-12.0); Neutrophil % 69.5 % (36.0-66.0); Platelet Count 189 K/mm3 (150-450); Red Cell Distribution Width 18.5 % (11.5-14.0); White Blood Count 7.9 K/mm3 (4.0-10.5)
[2020-05-29 22:36] LABS: ALBUMIN 3.2 g/dL (3.5-5.0); ANION GAP 12.8 MEQ/L (5-15); BILIRUBIN,TOTAL 0.4 mg/dL (0.2-1.3); Creatinine 1 2.78 mg/dL (0.52-1.04); Potassium 5.3 mmol/L (3.5-5.1)
[2020-05-29 23:22] VITALS: PULSE 85
[2020-05-30 00:05] VITALS: BP 130/76; O2SAT 97
== END 2020-05-29 23:58 | disposition home or self-care (01) ==
LOC: ED 21:07
DX: N18.9 Chronic kidney disease, unspecified (principal); E11.9 Type 2 diabetes mellitus without complications
CPT/HCPCS: 36415; 80053; 83880; 85025; 93005; 99284